=== PATIENT | male | born 1980 | race Caucasian/White ===

== ENCOUNTER 2018-05-15 00:23 | Inpatient (IN) | payer SELFPAY ==
[2018-05-15] MEDS ORDERED: NORMAL SALINE 1000 ML 1,000 ML IV ONE ×2 (01:37→02:52)
[2018-05-15] MEDS ORDERED: MORPHINE SULFATE 10 MG/ML INJ IV ONE (01:37)
--- NOTE | 2018-05-15 02:29 | ER Document Report ---
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 Patient states that yesterday he started to have a gradual burning to the right shoulder area but denies any specific injury. Patient states that tonight the shoulder pain started to increase and he noticed that he had an area over the right deltoid that he thought was concerning for a possible spider bite. Patient states that he heated up a razor blade and cut into the arm and states that he had 2 small drops of purulent material drained. Patient complains of increased shoulder pain that extends over the clavicle into the right side of his neck into the right upper back area. Patient denies any IV drug use. - HPI Patient complains to provider of: Pain, Swelling, Right, Shoulder Onset: Yesterday Recent injury: No Quality of pain: Sharp Severity of pain: Severe, Worse Pain Level: 5 Associated symptoms: denies: Fever, Nausea, Short of breath, Vomiting Exacerbated by: Movement Relieved by: Nothing Similar symptoms previously: No Recently seen / treated by doctor: No - Related Data Allergies/Adverse Reactions: No Known Allergies Allergy (Unverified 05/15/18 00:36) Past Medical History - General Information source: Patient - Social History Smoking Status: Current Every Day Smoker Chew tobacco use (# tins/day): No Frequency of alcohol use: None Drug Abuse: None Occupation: [employer] Lives with: Family Family History: Reviewed & Not Pertinent Patient has suicidal ideation: No Patient has homicidal ideation: No - Medical History Medical History: Negative Renal/ Medical History: Denies: Hx Peritoneal Dialysis Surgical Hx: Negative Review of Systems - Review of Systems Constitutional: No symptoms reported EENT: No symptoms reported Cardiovascular: No symptoms reported. denies: Chest pain Respiratory: No symptoms reported. denies: Cough, Short of breath Gastrointestinal: No symptoms reported. denies: Vomiting Genitourinary: No symptoms reported Male Genitourinary: No symptoms reported Musculoskeletal: Back pain - Right upper back, Joint pain - Right shoulder, Neck pain - Right side of neck Skin: Other - Concerned about spider bite to right deltoid Hematologic/Lymphatic: No symptoms reported Neurological/Psychological: No symptoms reported. denies: Weakness, Headaches Physical Exam - Vital signs Vitals: Temp Pulse Resp BP Pulse Ox 98.4 F 124 H 18 144/90 H 98 05/15/18 00:36 05/15/18 00:36 05/15/18 00:36 05/15/18 00:36 05/15/18 00:36 - General General appearance: Appears well, Alert In distress: Moderate Notes: Patient with very exaggerated pain response, pain seems out of proportion to physical exam findings - HEENT Head: Normocephalic, Atraumatic Eyes: Normal Nasal: Normal Mouth/Lips: Normal Mucous membranes: Normal Neck: Normal, Supple. No: Lymphadenopathy - Respiratory Respiratory status: No respiratory distress Chest status: Tender - Right upper chest wall tenderness with palpation, mild erythema overlying skin to right mid clavicular area Breath sounds: Normal Chest palpation: Tender - Right upper chest wall tenderness - Cardiovascular Rhythm: Tachycardia Heart sounds: S1 appreciated, S2 appreciated Murmur: No Pulses: Normal: Radial - Abdominal Inspection: Normal Tenderness: Nontender - Back Back: Normal, Nontender - Extremities General upper extremity: Tender - Tenderness over right deltoid, superior aspect of right humeral head and overlying the right clavicular area General lower extremity: Normal inspection, Normal strength Shoulder: Tender - Right shoulder, Limited ROM, Other - Patient with puncture wound to right deltoid area, no surrounding erythema, patient states this is where he performed an incision and drainage procedure at home with a razor blade. No: Ecchymosis Arm: Normal, Nontender Elbow: Normal, Nontender - Neurological Neuro grossly intact: Yes [place] Coma Scale Eye Opening: Spontaneous [place] Coma Scale Verbal: Oriented [place] Coma Scale Motor: Obeys Commands [place] Coma Scale Total: 15 - Psychological Associated symptoms: Anxious - Skin Skin Temperature: Warm Skin Moisture: Dry Skin Color: Erythema - Mild erythema overlying right clavicular area of upper chest wall Course - Re-evaluation Re-evalutation: 05/15/18 01:[address] Thacker who agrees to examined patient. 05/15/18 04:[address] Thacker regarding results of CT scan. Does recommend starting antibiotics including Zosyn and vancomycin and consultation with Ortho as well as hospitalist for likely admission. Consulted with Dr. lopez regarding patient presentation, agrees with plan for antibiotic administration 05/15/18 04:[address] Arevalo who does agree to accept patient for admission to medical floor at this time. - Vital Signs Vital signs: Temp Pulse Resp BP Pulse Ox 99.1 F 96 20 150/99 H 100 05/15/18 02:39 05/15/18 02:39 05/15/18 02:39 05/15/18 02:39 05/15/18 02:39 - Laboratory Result Diagrams: 05/15/18 02:15 05/15/18 02:15 Laboratory results interpreted by me: 05/15/18 05/15/18 05/15/18 02:15 02:15 02:15 WBC 15.3 H RBC 4.29 L RDW 14.6 H Seg Neutrophils % 79.5 H Lymphocytes % 9.9 L Absolute Neutrophils 12.1 H Absolute Monocytes 1.5 H ESR Glucose 114 H C-Reactive Protein 198.6 H 05/15/18 02:15 WBC RBC RDW Seg Neutrophils % Lymphocytes % Absolute Neutrophils Absolute Monocytes ESR 95 H Glucose C-Reactive Protein Labs- Entire Visit 05/15/18 05/15/18 05/15/18 02:15 02:15 02:15 WBC 15.3 H RBC 4.29 L Hgb 13.5 Hct 39.1 MCV 91 MCH 31.5 MCHC 34.5 RDW 14.6 H Plt Count 315 Seg Neutrophils % 79.5 H Lymphocytes % 9.9 L Monocytes % 10.0 Eosinophils % 0.2 Basophils % 0.4 Absolute Neutrophils 12.1 H Absolute Lymphocytes 1.5 Absolute Monocytes 1.5 H Absolute Eosinophils 0.0 Absolute Basophils 0.1 ESR PT INR VBG pH VBG pCO2 VBG HCO3 VBG Base Excess Sodium 142.7 Potassium 4.2 Chloride 102 Carbon Dioxide 29 Anion Gap 12 BUN 14 Creatinine 0.79 Est GFR ( Amer) > 60 Est GFR (Non-Af Amer) > 60 Glucose 114 H Lactic Acid Calcium 9.4 Total Bilirubin 0.4 Direct Bilirubin 0.3 Neonat Total Bilirubin Not Reportable Neonat Direct Bilirubin Not Reportable Neonat Indirect Bili Not Reportable AST 28 ALT 50 Alkaline Phosphatase 86 Creatine Kinase 58 C-Reactive Protein 198.6 H Total Protein 6.9 Albumin 3.5 05/15/18 05/15/18 05/15/18 02:15 02:15 02:15 WBC RBC Hgb Hct MCV MCH MCHC RDW Plt Count Seg Neutrophils % Lymphocytes % Monocytes % Eosinophils % Basophils % Absolute Neutrophils Absolute Lymphocytes Absolute Monocytes Absolute Eosinophils Absolute Basophils ESR 95 H PT 12.2 INR 0.86 VBG pH VBG pCO2 VBG HCO3 VBG Base Excess Sodium Potassium Chloride Carbon Dioxide Anion Gap BUN Creatinine Est GFR ( Amer) Est GFR (Non-Af Amer) Glucose Lactic Acid 1.2 Calcium Total Bilirubin Direct Bilirubin Neonat Total Bilirubin Neonat Direct Bilirubin Neonat Indirect Bili AST ALT Alkaline Phosphatase Creatine Kinase C-Reactive Protein Total Protein Albumin 05/15/18 02:15 WBC RBC Hgb Hct MCV MCH MCHC RDW Plt Count Seg Neutrophils % Lymphocytes % Monocytes % Eosinophils % Basophils % Absolute Neutrophils Absolute Lymphocytes Absolute Monocytes Absolute Eosinophils Absolute Basophils ESR PT INR VBG pH 7.39 VBG pCO2 50.0 VBG HCO3 29.3 VBG Base Excess 3.4 Sodium Potassium Chloride Carbon Dioxide Anion Gap BUN Creatinine Est GFR ( Amer) Est GFR (Non-Af Amer) Glucose Lactic Acid Calcium Total Bilirubin Direct Bilirubin Neonat Total Bilirubin Neonat Direct Bilirubin Neonat Indirect Bili AST ALT Alkaline Phosphatase Creatine Kinase C-Reactive Protein Total Protein Albumin - Diagnostic Test Radiology reviewed: Reports reviewed Discharge - Discharge Clinical Impression: Myositis Qualifiers: Myositis type: unspecified type Myositis location: unspecified site Qualified Code(s): M60.9 - Myositis, unspecified Cellulitis Qualifiers: Site of cellulitis: unspecified site Qualified Code(s): L03.90 - Cellulitis, unspecified Right shoulder pain Qualifiers: Chronicity: acute Qualified Code(s): M25.511 - Pain in right shoulder Condition: Stable Disposition: ADMITTED INPATIENT Admitting Provider: Hospitalist Unit Admitted: Medical Floor
[2018-05-15 02:35] LABS: ABSOLUTE BASOPHILS # (AUTO) 0.1 10^3/uL (0.0-0.2); ABSOLUTE LYMPHOCYTES (AUTO) 1.5 10^3/uL (0.5-4.7); ABSOLUTE MONOCYTES (AUTO) 1.5 10^3/uL (0.1-1.4); ABSOLUTE NEUT (AUTO) 12.1 10^3/uL (1.7-8.2); BASOPHILS % (AUTO) 0.4 % (0-2); EOSINOPHILS % (AUTO) 0.2 % (0-6); HEMATOCRIT 39.1 % (37.9-51.0); HEMOGLOBIN 13.5 g/dL (13.5-17.0); LYMPHOCYTES % (AUTO) 9.9 % (13-45); MEAN CORPUSCULAR HEMOGLOBIN 31.5 pg (27.0-33.4); MEAN CORPUSCULAR HGB CONC 34.5 g/dL (32.0-36.0); MEAN CORPUSCULAR VOLUME 91 fl (80-97); PLATELET COUNT 315 10^3/uL (150-450); RED BLOOD COUNT 4.29 10^6/uL (4.35-5.55); RED CELL DISTRIBUTION WIDTH 14.6 % (11.5-14.0); SEGMENTED NEUTROPHILS % (AUTO) 79.5 % (42-78); TOTAL CELLS COUNTED % (AUTO) 100 %; WHITE BLOOD COUNT 15.3 10^3/uL (4.0-10.5)
--- NOTE | 2018-05-15 02:51 | RADIOLOGY REPORT (SQ) ---
EXAM DESCRIPTION: XR SHOULDER 2 OR MORE VIEWS COMPLETED DATE/TME: 05/15/2018 01:55 CLINICAL HISTORY: 37 years, Male, concern for dislocation COMPARISON: None. NUMBER OF VIEWS: 3 TECHNIQUE: 3 view right shoulder LIMITATIONS: None. FINDINGS: Deformity of the acromioclavicular joint consistent with AC separation. In addition there is cortical irregularity associated with the distal clavicle, worrisome for nondisplaced fracture. There is extensive soft tissue swelling. The glenohumeral joint is intact. IMPRESSION: Widening of the acromioclavicular joint concerning for AC separation with nondisplaced fracture of the distal clavicle. Associated soft tissue swelling. 2011 [employer]- All Rights Reserved
[2018-05-15 02:52] LABS: ALANINE AMINOTRANSFERASE 50 U/L (21-72); ALBUMIN 3.5 g/dL (3.5-5.0); ALKALINE PHOSPHATASE 86 U/L (38-126); ANION GAP 12 (5-19); ASPARTATE AMINO TRANSFERASE 28 U/L (17-59); BILIRUBIN,DIRECT 0.3 mg/dL (0.0-0.4); BILIRUBIN,TOTAL 0.4 mg/dL (0.2-1.3); BLOOD UREA NITROGEN 14 mg/dL (7-20); CALCIUM 9.4 mg/dL (8.4-10.2); CARBON DIOXIDE 29 mmol/L (22-30); CHLORIDE 102 mmol/L (98-107); GLUCOSE 114 mg/dL (75-110); POTASSIUM 4.2 mmol/L (3.6-5.0); SODIUM 142.7 mmol/L (137-145); TOTAL PROTEIN 6.9 g/dL (6.3-8.2)
[2018-05-15] MEDS ORDERED: ACETAMINOPHEN 325 MG TABLET PO ONE (02:52)
[2018-05-15 02:57] LABS: CREATINE KINASE 58 U/L (55-170)
[2018-05-15 02:58] LABS: VENOUS BLOOD BASE EXCESS 3.4 mmol/L; VENOUS BLOOD HCO3 29.3 mmol/L (20-32); VENOUS BLOOD PH 7.39 (7.30-7.42)
[2018-05-15 03:02] LABS: INTERNATIONAL RATION (INR) 0.86; PROTHROMBIN TIME 12.2 SEC (11.4-15.4)
[2018-05-15 03:11] LABS: C-REACTIVE PROTEIN 198.6 mg/L (<10.0)
[2018-05-15] MEDS ORDERED: HYDROMORPHONE HCL INJ/PF 2 MG/ML AMPULE IV ONE ×2 (03:14→05:31)
--- NOTE | 2018-05-15 04:20 | RADIOLOGY REPORT (SQ) ---
EXAM DESCRIPTION: CT UPPER EXTREMITY WITH IV CONTRAST COMPLETED DATE/TME: 05/15/2018 02:51 CLINICAL HISTORY: 37 years, Male, r shoulder, clavicle, trapezius, r lat neck pain COMPARISON: None. TECHNIQUE: 443 Images stored on PACS. All CT scanners at this facility use dose modulation, iterative reconstruction, and/or weight based dosing when appropriate to reduce radiation dose to as low as reasonably achievable (ALARA). [facility]: Dose Right [facility]: CareDose [facility]: Dose Right [facility]: Teradose 4D [facility]: [employer] LIMITATIONS: None. FINDINGS: There is subcutaneous inflammatory change and inflammation in the right supraclavicular region, minimally extending to the right neck and posterior right hemithorax. No discrete or defined fluid collection or abscess. No enhancing abnormality. There is irregularity of the acromioclavicular joint, and the distal clavicle. There is no soft tissue gas. Some equivocal widening of the acromial clavicular joint findings may simply represent degenerative changes with minor cortical irregularity of the acromial clavicular joint particularly the distal clavicle. There is also an edematous heterogeneous appearance to the right deltoid musculature, suspicious for myositis. Given other findings, superimposed infectious process cannot be excluded entirely. Close follow-up is recommended. IMPRESSION: Cellulitis and myositis of the right supraclavicular region with cortical irregularity of the distal clavicle/AC joint. No discrete or defined abscess or enhancing abnormality. Findings of the AC joint may in part relate to degenerative change. However, an infectious process would be difficult to exclude entirely given the degree of soft tissue edema and inflammation.. TECHNICAL DOCUMENTATION: Quality ID # 436: Final reports with documentation of one or more dose reduction techniques (e.g., Automated exposure control, adjustment of the mA and/or kV according to patient size, use of iterative reconstruction technique) 2010 [employer]- All Rights Reserved
[2018-05-15] MEDS ORDERED: VANCOMYCIN HCL INJ 1000 MG VIAL IV ONE (04:41)
[2018-05-15] MEDS ORDERED: PIPERACILLIN/TAZOBACTAM 3.375 GM VIAL IV ONE (04:41)
[2018-05-15] MEDS ORDERED: DIPH/PERTUSS(ACELL)/TETANUS VAC/PF 0.5 ML SYR (>=10YO) IM ONE (04:59)
[2018-05-15] MEDS ORDERED: HYDROMORPHONE HCL INJ/PF 2 MG/ML AMPULE ONE (05:29)
[2018-05-15] MEDS ORDERED: METHYLPREDNISOLONE INJ 125 MG/2 ML SDV IV STA (05:38)
[2018-05-15] MEDS ORDERED: MAG HYDROX/AL HYDROX/SIMETH SUSP 30 ML UDCUP PO PRN (05:39)
[2018-05-15] MEDS ORDERED: METOCLOPRAMIDE HCL INJ/PF 10 MG/2 ML SDV IV PRN (05:39)
[2018-05-15] MEDS ORDERED: AMPICILLIN SOD/SULBACTAM 3 GM VIAL IV PRN (05:45)
[2018-05-15] MEDS ORDERED: AMPICILLIN SODIUM/SULBACTAM NA 3 GM in NORMAL SALINE 100 ML IV SCH (06:00)
--- NOTE | 2018-05-15 06:16 | PDOC H&P ---
History of Present Illness Admission Date/PCP: 05/15/18 05:01 Patient complains of: Right shoulder pain History of Present Illness: JOSE MARTINES is a 37 year old male with no medical history who comes to the emergency department after a spider bite. Patient tells me that he was not sleeping and around 10 PM a sudden pain on his right shoulder woke him up, he went to the bathroom on his own 2 L dots on his right shoulder, he got his care and he cut that piece of his skin with a razor. Patient is squeezed the lesion and some post came out, he has a intense burning sensation and noticed erythema , edema and warm that rapidly has been extending to his right neck upper back part of his chest and arm, he has an excruciating pain with very light palpation. Denies fever, chills, nausea, vomiting, dizziness, lightheadedness, shortness of breath, chest pain, cough, wheezing, abdominal pains, changes on his urine or bowel movements. In the emergency department that right shoulder x-ray showsWidening of the acromioclavicular joint concerning for AC separation with nondisplaced fracture of the distal clavicle. Associated soft tissue swelling. Subsequent CT was done showing Cellulitis and myositis of the right supraclavicular region with cortical irregularity of the distal clavicle/AC joint. No discrete or defined abscess or enhancing abnormality. Due to the severity of this lesion it was decided to admit the patient In the ED was order IV Zosyn and IV vancomycin. Past Medical History Medical History: None Past Surgical History Past Surgical History: Reports: None Social History Smoking Status: Current Every Day Smoker - 1 pack/day Frequency of Alcohol Use: None Hx Recreational Drug Use: No Hx Prescription Drug Abuse: No Past Social History Note: Patient lives with his mother and his son. 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 Family History Family History: Mother is alive 66 years old, father at 58 years old with history of massive CO Parental Family History Reviewed: Yes - As above Children Family History Reviewed: NA Sibling(s) Family History Reviewed.: NA Medication/Allergy Allergies/Adverse Reactions: No Known Allergies Allergy (Unverified 05/15/18 00:36) Review of Systems Review of Systems: As outlined in the HPI, others negative Physical Exam Vital Signs: Temp Pulse Resp BP Pulse Ox 99.1 F 96 20 150/99 H 100 05/15/18 02:39 05/15/18 02:39 05/15/18 02:39 05/15/18 02:39 05/15/18 02:39 Additional comments: General appearance: Well-developed, well-nourished, alert and cooperative, and appears to be in no acute distress Head: Normocephalic Eyes: PEERL, EOMI, vision is grossly intact. Ears: External auditory canal and tympanic membranes clear, hearing grossly intact. Nose: No nasal discharge. Throat: Oral cavity and pharynx normal. No inflammation, swelling, exudate or lesions. Neck: Neck supple, nontender without lymphadenopathy, masses or thyromegaly. Cardiac: Normal S1 and S2. No S3, S4 or murmurs. Rhythm is regular. There is no peripheral edema, cyanosis or pallor. Extremities are warm and well perfused. Capillary refill is less than 2 seconds. No carotid bruits. Lungs: Clear to auscultation and percussion without rales, rhonchi, wheezing or diminished breath sounds. Not using accessory muscles. Abdomen: Positive bowel sounds. Soft. Nondistended, nontender. No guarding or rebound. No masses. No hepatosplenomegaly Extremities: Right shoulder: Shows redness with swelling and warmth extending over the right deltoid, superior aspect of the right humeral head and overlying the right clavicular area and neck. Extremely tender Rogers to light palpation. The fangs vergara are not visible as that skin area has been cutwith a razor. Very limited range of motion of the right shoulder secondary to pain. No evidence of secretions. Peripheral pulses intact. No varicosities. Neurological: Cranial nerves II through XII grossly intact. Strength and sensation symmetric and intact throughout. Reflexes 2+ throughout. Skin: Skin normal color, texture and turgor with no lesions or eruptions, warm and dry. Psychiatric: The mental examination revealed the patient was oriented to person , place, and time. The patient was able to demonstrate good judgment on recent , without hallucinations, abnormal affect or abnormal behaviors. Results Laboratory Results: 05/15/18 05/15/18 05/15/18 02:15 02:15 02:15 WBC 15.3 H RBC 4.29 L Hgb 13.5 Hct 39.1 MCV 91 MCH 31.5 MCHC 34.5 RDW 14.6 H Plt Count 315 Seg Neutrophils % 79.5 H Lymphocytes % 9.9 L Monocytes % 10.0 Eosinophils % 0.2 Basophils % 0.4 Absolute Neutrophils 12.1 H Absolute Lymphocytes 1.5 Absolute Monocytes 1.5 H Absolute Eosinophils 0.0 Absolute Basophils 0.1 ESR PT INR VBG pH VBG pCO2 VBG HCO3 VBG Base Excess Sodium 142.7 Potassium 4.2 Chloride 102 Carbon Dioxide 29 Anion Gap 12 BUN 14 Creatinine 0.79 Est GFR ( Amer) > 60 Est GFR (Non-Af Amer) > 60 Glucose 114 H Lactic Acid Calcium 9.4 Total Bilirubin 0.4 Direct Bilirubin 0.3 AST 28 ALT 50 Alkaline Phosphatase 86 Creatine Kinase 58 C-Reactive Protein 198.6 H Total Protein 6.9 Albumin 3.5 05/15/18 05/15/18 05/15/18 02:15 02:15 02:15 WBC RBC Hgb Hct MCV MCH MCHC RDW Plt Count Seg Neutrophils % Lymphocytes % Monocytes % Eosinophils % Basophils % Absolute Neutrophils Absolute Lymphocytes Absolute Monocytes Absolute Eosinophils Absolute Basophils ESR 95 H PT 12.2 INR 0.86 VBG pH VBG pCO2 VBG HCO3 VBG Base Excess Sodium Potassium Chloride Carbon Dioxide Anion Gap BUN Creatinine Est GFR ( Amer) Est GFR (Non-Af Amer) Glucose Lactic Acid 1.2 Calcium Total Bilirubin Direct Bilirubin AST ALT Alkaline Phosphatase Creatine Kinase C-Reactive Protein Total Protein Albumin 05/15/18 02:15 WBC RBC Hgb Hct MCV MCH MCHC RDW Plt Count Seg Neutrophils % Lymphocytes % Monocytes % Eosinophils % Basophils % Absolute Neutrophils Absolute Lymphocytes Absolute Monocytes Absolute Eosinophils Absolute Basophils ESR PT INR VBG pH 7.39 VBG pCO2 50.0 VBG HCO3 29.3 VBG Base Excess 3.4 Sodium Potassium Chloride Carbon Dioxide Anion Gap BUN Creatinine Est GFR ( Amer) Est GFR (Non-Af Amer) Glucose Lactic Acid Calcium Total Bilirubin Direct Bilirubin AST ALT Alkaline Phosphatase Creatine Kinase C-Reactive Protein Total Protein Albumin Impressions: Shoulder X-Ray 05/15/18 01:55 IMPRESSION: Widening of the acromioclavicular joint concerning for AC separation with nondisplaced fracture of the distal clavicle. Associated soft tissue swelling. 2010 [employer]- All Rights Reserved Upper Extremity CT 05/15/18 02:51 IMPRESSION: Cellulitis and myositis of the right supraclavicular region with cortical irregularity of the distal clavicle/AC joint. No discrete or defined abscess or enhancing abnormality. Findings of the AC joint may in part relate to degenerative change. However, an infectious process would be difficult to exclude entirely given the degree of soft tissue edema and inflammation.. TECHNICAL DOCUMENTATION: Quality ID # 436: Final reports with documentation of one or more dose reduction techniques (e.g., Automated exposure control, adjustment of the mA and/or kV according to patient size, use of iterative reconstruction technique) 2010 [employer]- All Rights Reserved Assessment & Plan - Diagnosis (1) Spider bite Qualifiers: Encounter type: initial encounter Is this a current diagnosis for this admission?: Yes Plan: Spider bite with cellulitis and myositis of the right shoulder that has rapidly progressed in few hours. Patient has excruciating pain with light palpation and severe burning sensation. Has been given IV Zosyn and IV vancomycin in the ED, I will continue with IV Unasyn as this reaction is most likely secondary to spider venoum. I gave 1 dose of Solu-Medrol 125 mg IV. IV fluids. IV and p.o. pain medications. P.o. Benadryl as needed. IV antiemetics as needed. Orthopedics with Dr. meyer has been consulted, emergency spoke with him and he agrees with antibiotics. It is concerning the velocity that the lesion has spread. (2) Cellulitis Qualifiers: Site of cellulitis: unspecified site Qualified Code(s): L03.90 - Cellulitis , unspecified Is this a current diagnosis for this admission?: Yes Plan: Right shoulder. As above (3) Myositis Qualifiers: Myositis type: unspecified type Myositis location: unspecified site Qualified Code(s): M60.9 - Myositis, unspecified Is this a current diagnosis for this admission?: Yes Plan: Right shoulder. As above (4) DVT prophylaxis Is this a current diagnosis for this admission?: Yes Plan: Heparin - Time Time Spent: 50 to 70 Minutes - Inpatient Certification Based on my medical assessment, after consideration of the patient's comorbidities, presenting symptoms, or acuity I expect that the services needed warrant INPATIENT care.: Yes I certify that my determination is in accordance with my understanding of Medicare's requirements for reasonable and necessary INPATIENT services [42 CFR 412.3e].: Yes Medical Necessity: Risk of Complication if Not Cared For in Hospital - Worsening cellulitis with myositis including necrosis and infection. Excruciating pain. - Plan Summary Plan Summary: Plan discussed with patient, agree with it.
[2018-05-15] MEDS: HEPARIN SOD (PORCINE) 5,000 UNIT/ML 1 ML SYRINGE SUBCUT SCH ×3 (06:56→21:52)
[2018-05-15] MEDS: OXYCODONE-ACETAMINOPHEN 5-325 MG TABLET PO PRN ×3 (07:55→21:53)
[2018-05-15] MEDS: HYDROMORPHONE HCL INJ/PF 2 MG/ML AMPULE IV PRN ×2 (10:03→17:10)
[2018-05-15] MEDS: AMPICILLIN SODIUM/SULBACTAM NA 3 GM in NORMAL SALINE 100 ML IV SCH ×3 (10:04→21:52)
--- NOTE | 2018-05-15 10:54 | EKG REPORT ---
SEVERITY:- OTHERWISE NORMAL ECG - SINUS TACHYCARDIA : Confirmed by: Agustin Ramos 15-May-2018 10:53:42
--- NOTE | 2018-05-15 11:10 | Progress Note ---
Provider Note Provider Note: Admitted overnight - Continue to have excruciating pain. - Add IV Dilaudid 1mg q6 hours PRN - Dr. Enedelia Josue consulted, appreciate evaluation to determine if surgical intervention is needed at this point - Advised patient that we will continue supportive care now - If blood cultures are negative, can de-escalate/dc antibiotics
--- NOTE | 2018-05-15 14:04 | PDOC CONSULTATION ---
Consultation Consult Date: 05/15/18 History of Present Illness Admission Date/PCP: 05/15/18 05:01 History of Present Illness: JOSE MARTINES is a 37 year old male status post what he believes was a spider bite but he cannot be under pressure. The bite was on the right lateral shoulder over his head to. Immediately developed swelling pain and burning sensation and was brought to the ER. Patient was admitted for cellulitis myositis status post spider bite of the right shoulder. Patient complained of it being warm to touch and red and increasing pain. Denies any previous injuries to the shoulder or previous bite to the shoulder. Complains of pain to being with touch to be 10 out of 10 acute burning pain at rest the pain is 4 out of 10. Past Surgical History Past Surgical History: Reports: None Social History Lives with: Family Smoking Status: Current Every Day Smoker Frequency of Alcohol Use: None Hx Recreational Drug Use: No Hx Prescription Drug Abuse: No Family History Family History: Reviewed & Not Pertinent Parental Family History Reviewed: No Children Family History Reviewed: No Sibling(s) Family History Reviewed.: No Medication/Allergy Home Medications: No Home Medications 05/15/18 Allergies/Adverse Reactions: No Known Allergies Allergy (Unverified 05/15/18 00:36) Review of Systems Review of Systems: Constitutional: [PRESENT: as per HPI. ABSENT: chills, fever(s), headache(s), weight gain, weight loss] Eyes: [ABSENT: visual disturbances] Ears: [ABSENT: hearing changes] Cardiovascular: [ABSENT: chest pain, dyspnea on exertion, edema, orthropnea, palpitations] Respiratory: [ABSENT: cough, hemoptysis] Gastrointestinal: [ABSENT: abdominal pain, constipation, diarrhea, hematemesis, hematochezia, nausea, vomiting] Genitourinary: [ABSENT: dysuria, hematuria] Musculoskeletal: [ABSENT: joint swelling] Integumentary: [ABSENT: rash, wounds] Neurological: [ABSENT: abnormal gait, abnormal speech, confusion, dizziness, focal weakness, syncope] Psychiatric: [ABSENT: anxiety, depression, homicidal ideation, suicidal ideation ] Endocrine: [ABSENT: cold intolerance, heat intolerance, menstrual abnormalities , polydipsia, polyuria] Hematologic/Lymphatic: [ABSENT: easy bleeding, easy bruising, lymphadenopathy] Physical Exam Vital Signs: Temp Pulse Resp BP Pulse Ox 37.4 C 106 H 16 149/94 H 100 11/18/18 11:12 05/15/18 11:12 05/15/18 11:12 05/15/18 11:12 05/15/18 11:12 Intake & Output 05/14/18 05/15/18 05/16/18 06:59 06:59 06:59 Intake Total 927 Output Total 1900 Balance -973 Weight 91.1 kg General appearance: PRESENT: no acute distress Head exam: PRESENT: atraumatic, normocephalic Eye exam: PRESENT: EOMI, other - Symmetric round pupils Mouth exam: PRESENT: neck supple Respiratory exam: PRESENT: symmetrical, unlabored. ABSENT: accessory muscle use , tachypnea Pulses: PRESENT: normal radial pulses Vascular exam: PRESENT: normal capillary refill Neurological exam: PRESENT: alert, altered, awake, oriented to person, oriented to place, oriented to time, oriented to situation Psychiatric exam: PRESENT: appropriate affect, normal mood Adult Front & Back Image: 1 - I can see the previous scab where the animal bit. I do not see the erythema that was present. Extremely tender out of proportion with palpation of the only the lateral shoulder but the supraclavicular fossa and his periscapular region. There is minimal swelling. He does have normal neurovascular exam distally in that extremity. Results Impressions: Shoulder X-Ray 05/15/18 01:55 IMPRESSION: Widening of the acromioclavicular joint concerning for AC separation with nondisplaced fracture of the distal clavicle. Associated soft tissue swelling. 2010 [employer]- All Rights Reserved Upper Extremity CT 05/15/18 02:51 IMPRESSION: Cellulitis and myositis of the right supraclavicular region with cortical irregularity of the distal clavicle/AC joint. No discrete or defined abscess or enhancing abnormality. Findings of the AC joint may in part relate to degenerative change. However, an infectious process would be difficult to exclude entirely given the degree of soft tissue edema and inflammation.. TECHNICAL DOCUMENTATION: Quality ID # 436: Final reports with documentation of one or more dose reduction techniques (e.g., Automated exposure control, adjustment of the mA and/or kV according to patient size, use of iterative reconstruction technique) 2010 [employer]- All Rights Reserved Assessment & Plan - Diagnosis (1) Right shoulder pain Qualifiers: Chronicity: acute Qualified Code(s): M25.511 - Pain in right shoulder (2) Spider bite Qualifiers: Encounter type: initial encounter Is this a current diagnosis for this admission?: Yes - Plan Summary Plan Summary: 37-year-old gentleman status post likely spider bite to the right shoulder with some neuropathic pain I believe. There is no evidence of abscess formation requiring surgical intervention. There is no erythema. There is significant pain therefore I would recommend leg she would like Neurontin or Lyrica to help with his pain. If patient plateaus her symptoms worsen or do not improve then next 2-3 days then I would recommend an MRI of the right shoulder to further investigate source of his pain. The cortical irregularity of the x-rays could be from ostial lysis of the clavicle. Again if the patient does not improve I recommend an MRI of the right shoulder.
[2018-05-15] MEDS: NORMAL SALINE 1000 ML 1,000 ML IV PRN (21:54)
[2018-05-15] MEDS: TEMAZEPAM 15 MG CAPSULE PO PRN (21:54)
[2018-05-15] MEDS ORDERED: VANCOMYCIN HCL INJ 1000 MG VIAL IV PRN (23:05)
[2018-05-15] MEDS ORDERED: [UNRECOGNIZED DRUG - OTHER] MC PRN (23:06)
[2018-05-16] MEDS ORDERED: VANCOMYCIN HCL 1,250 MG in DEXTROSE 5%-WATER 250 ML IV ONE ×2
[2018-05-16] MEDS: HYDROMORPHONE HCL INJ/PF 2 MG/ML AMPULE IV PRN ×7 (00:14→23:55)
[2018-05-16] MEDS ORDERED: VANCOMYCIN HCL INJ 1000 MG VIAL ONE (01:03)
[2018-05-16] MEDS ORDERED: VANCOMYCIN HCL INJ 500 MG VIAL ONE (02:22)
[2018-05-16] MEDS: AMPICILLIN SODIUM/SULBACTAM NA 3 GM in NORMAL SALINE 100 ML IV SCH ×4 (02:24→21:15)
[2018-05-16] MEDS: KETOROLAC TROMETHAMINE INJ/PF 30 MG/1 ML SDV IV PRN ×4 (03:36→23:54)
[2018-05-16 04:50] LABS: ABSOLUTE BASOPHILS # (AUTO) 0.1 10^3/uL (0.0-0.2); ABSOLUTE LYMPHOCYTES (AUTO) 1.3 10^3/uL (0.5-4.7); ABSOLUTE MONOCYTES (AUTO) 1.6 10^3/uL (0.1-1.4); ABSOLUTE NEUT (AUTO) 15.2 10^3/uL (1.7-8.2); BASOPHILS % (AUTO) 0.4 % (0-2); EOSINOPHILS % (AUTO) 0.1 % (0-6); HEMATOCRIT 33.2 % (37.9-51.0); HEMOGLOBIN 11.5 g/dL (13.5-17.0); LYMPHOCYTES % (AUTO) 7.4 % (13-45); MEAN CORPUSCULAR HEMOGLOBIN 31.1 pg (27.0-33.4); MEAN CORPUSCULAR HGB CONC 34.5 g/dL (32.0-36.0); MEAN CORPUSCULAR VOLUME 90 fl (80-97); MONOCYTES % (AUTO) 8.6 % (3-13); PLATELET COUNT 233 10^3/uL (150-450); RED BLOOD COUNT 3.68 10^6/uL (4.35-5.55); RED CELL DISTRIBUTION WIDTH 14.4 % (11.5-14.0); SEGMENTED NEUTROPHILS % (AUTO) 83.5 % (42-78); TOTAL CELLS COUNTED % (AUTO) 100 %; WHITE BLOOD COUNT 18.2 10^3/uL (4.0-10.5)
[2018-05-16 05:10] LABS: ANION GAP 12 (5-19); BLOOD UREA NITROGEN 9 mg/dL (7-20); CALCIUM 8.4 mg/dL (8.4-10.2); CARBON DIOXIDE 24 mmol/L (22-30); CHLORIDE 100 mmol/L (98-107); GLUCOSE 105 mg/dL (75-110); POTASSIUM 3.7 mmol/L (3.6-5.0); SODIUM 135.5 mmol/L (137-145)
[2018-05-16] MEDS: HEPARIN SOD (PORCINE) 5,000 UNIT/ML 1 ML SYRINGE SUBCUT SCH ×3 (05:49→21:16)
[2018-05-16] MEDS: VANCOMYCIN HCL 1,500 MG in DEXTROSE 5%-WATER 250 ML IV SCH ×2 (10:17→18:14)
[2018-05-16] MEDS: NICOTINE 21 MG/24 HR PATCH.TD24 TD SCH (12:13)
--- NOTE | 2018-05-16 13:31 | PDOC PROGRESS REPORT ---
Subjective Progress Note for:: 05/16/18 Subjective:: JOSE MARTINES is a 37 year old male with past medical history of a spider bite 3 years ago. 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 Presented to ED after a spider bite. He stated that while sleeping around 10 PM of sudden pain in his right shoulder , woke up and went to the bathroom and noticed 2 small dots over his lateral shoulder, he went to his bathroom and cut the piece of his skin out with a razor and squeezed the lesion and he states that some pus came out. He noticed that he was having intense burning sensation associated with rapidly expanding erythema and edema extending to his right neck and right upper chest with excruciating right shoulder pain and tenderness to very light palpation. Denies fever, chills, nausea, vomiting, dizziness, lightheadedness, shortness of breath, chest pain, cough, wheezing, abdominal pains, changes on his urine or bowel movements. In the ED right shoulder x-ray showed thinning of AC concerning for AC separation with nondisplaced fracture of the distal clavicle with associated soft tissue swelling. All of CT showed right shoulder cellulitis and myelitis and right supraclavicular region with cortical irregularity of the distal clavicle and AC joint. No collection or abscess were noted. Patient was admitted patient for management of his pain and was started on IV vancomycin and Zosyn. Ortho was consulted and recommendation was to monitor patient and if pain does not improve to do a follow-up MRI of the right shoulder. 01/13/2018. Events overnight. Patient is resting in his bed complaining that he has not been able to sleep all night due to persistent right shoulder pain. States that he has had another spider bite 3 years ago and he had similar pain and his pain was managed by Dilaudid. He denies any fever, chills, nausea, vomiting, diarrhea, constipation or any urinary symptoms. Reason For Visit: SPIDER BITE Physical Exam Vital Signs: Temp Pulse Resp BP Pulse Ox 98.9 F 91 16 144/80 H 100 05/16/18 12:00 05/16/18 12:00 05/16/18 12:00 05/16/18 12:00 05/16/18 12:00 Intake & Output 05/15/18 05/16/18 05/17/18 06:59 06:59 06:59 Intake Total 1463 Output Total 3900 Balance -2437 Weight 91.1 kg 96 kg General appearance: PRESENT: no acute distress, well-developed, well-nourished Head exam: PRESENT: atraumatic, normocephalic Eye exam: PRESENT: conjunctiva pink, EOMI, PERRLA. ABSENT: scleral icterus Ear exam: PRESENT: normal external ear exam Mouth exam: PRESENT: moist, tongue midline Neck exam: ABSENT: carotid bruit, JVD, lymphadenopathy, thyromegaly Respiratory exam: PRESENT: clear to auscultation sally. ABSENT: rales, rhonchi, wheezes Cardiovascular exam: PRESENT: RRR. ABSENT: diastolic murmur, rubs, systolic murmur Pulses: PRESENT: normal dorsalis pedis pul Vascular exam: PRESENT: normal capillary refill GI/Abdominal exam: PRESENT: normal bowel sounds, soft. ABSENT: distended, guarding, mass, organolmegaly, rebound, tenderness Rectal exam: PRESENT: deferred Extremities exam: PRESENT: full ROM. ABSENT: calf tenderness, clubbing, pedal edema Musculoskeletal exam: PRESENT: tenderness, other - Right upper extremity limited range of motion due to severe pain. Tenderness to palpation over deltoid region. No erythema, discharge or any active sign of infection. Pulses are palpable. Neurological exam: PRESENT: alert, awake, oriented to person, oriented to place , oriented to time, oriented to situation, CN II-XII grossly intact. ABSENT: motor sensory deficit Psychiatric exam: PRESENT: appropriate affect, normal mood. ABSENT: homicidal ideation, suicidal ideation Skin exam: PRESENT: dry, intact, warm. ABSENT: cyanosis, rash Results Laboratory Results: 05/16/18 03:57 05/16/18 03:57 05/16/18 05/16/18 03:57 03:57 WBC 18.2 H RBC 3.68 L Hgb 11.5 L Hct 33.2 L MCV 90 MCH 31.1 MCHC 34.5 RDW 14.4 H Plt Count 233 Seg Neutrophils % 83.5 H Lymphocytes % 7.4 L Monocytes % 8.6 Eosinophils % 0.1 Basophils % 0.4 Absolute Neutrophils 15.2 H Absolute Lymphocytes 1.3 Absolute Monocytes 1.6 H Absolute Eosinophils 0.0 Absolute Basophils 0.1 Sodium 135.5 L Potassium 3.7 Chloride 100 Carbon Dioxide 24 Anion Gap 12 BUN 9 Creatinine 0.62 Est GFR ( Amer) > 60 Est GFR (Non-Af Amer) > 60 Glucose 105 Calcium 8.4 Impressions: Shoulder X-Ray 05/15/18 01:55 IMPRESSION: Widening of the acromioclavicular joint concerning for AC separation with nondisplaced fracture of the distal clavicle. Associated soft tissue swelling. 2010 [employer]- All Rights Reserved Upper Extremity CT 05/15/18 02:51 IMPRESSION: Cellulitis and myositis of the right supraclavicular region with cortical irregularity of the distal clavicle/AC joint. No discrete or defined abscess or enhancing abnormality. Findings of the AC joint may in part relate to degenerative change. However, an infectious process would be difficult to exclude entirely given the degree of soft tissue edema and inflammation.. TECHNICAL DOCUMENTATION: Quality ID # 436: Final reports with documentation of one or more dose reduction techniques (e.g., Automated exposure control, adjustment of the mA and/or kV according to patient size, use of iterative reconstruction technique) 2010 [employer]- All Rights Reserved Assessment & Plan - Diagnosis (1) Spider bite Qualifiers: Encounter type: initial encounter Is this a current diagnosis for this admission?: Yes Plan: Unknown a spider. Continue supportive measures. Persistent excruciating pain however erythema and swelling of the right shoulder has resolved. Right upper extremity is very tender to palpation and patient has limited range of motion due to severe pain pulses are intact as well as sensation. Orth was on board. Continue vancomycin and Zosyn. If pain does not improve will follow up with MRI of right upper extremity with and without contrast. (2) Cellulitis Qualifiers: Site of cellulitis: unspecified site Qualified Code(s): L03.90 - Cellulitis , unspecified Is this a current diagnosis for this admission?: Yes Plan: Likely due to spider bite as well as the fact that patient manipulated the site of spider bite with a razor. Patient is growing gram-positive cocci 2 out of 2 we will continue vancomycin and Zosyn pending sensitivity. (3) Myositis Qualifiers: Myositis type: unspecified type Myositis location: unspecified site Qualified Code(s): M60.9 - Myositis, unspecified Is this a current diagnosis for this admission?: Yes Plan: As per problem #2.
[2018-05-16] MEDS: NORMAL SALINE 1000 ML 1,000 ML IV PRN (14:47)
[2018-05-16] MEDS: ACETAMINOPHEN 325 MG TABLET PO PRN (21:30)
[2018-05-17] MEDS: VANCOMYCIN HCL 1,500 MG in DEXTROSE 5%-WATER 250 ML IV SCH ×3 (01:35→18:20)
[2018-05-17] MEDS: HYDROMORPHONE HCL INJ/PF 2 MG/ML AMPULE IV PRN ×7 (03:17→22:03)
[2018-05-17] MEDS: AMPICILLIN SODIUM/SULBACTAM NA 3 GM in NORMAL SALINE 100 ML IV SCH ×4 (03:19→20:27)
[2018-05-17] MEDS: ACETAMINOPHEN 325 MG TABLET PO PRN (04:48)
[2018-05-17] MEDS: HEPARIN SOD (PORCINE) 5,000 UNIT/ML 1 ML SYRINGE SUBCUT SCH ×3 (06:26→22:07)
[2018-05-17] MEDS: KETOROLAC TROMETHAMINE INJ/PF 30 MG/1 ML SDV IV PRN ×3 (08:42→22:06)
[2018-05-17 10:14] LABS: ABSOLUTE EOSINOPHILS # (AUTO) 0.1 10^3/uL (0.0-0.6); ABSOLUTE LYMPHOCYTES (AUTO) 1.1 10^3/uL (0.5-4.7); ABSOLUTE MONOCYTES (AUTO) 0.6 10^3/uL (0.1-1.4); ABSOLUTE NEUT (AUTO) 14.4 10^3/uL (1.7-8.2); BASOPHILS % (AUTO) 0.2 % (0-2); EOSINOPHILS % (AUTO) 0.3 % (0-6); HEMATOCRIT 31.8 % (37.9-51.0); HEMOGLOBIN 10.9 g/dL (13.5-17.0); LYMPHOCYTES % (AUTO) 6.9 % (13-45); MEAN CORPUSCULAR HEMOGLOBIN 30.9 pg (27.0-33.4); MEAN CORPUSCULAR HGB CONC 34.2 g/dL (32.0-36.0); MEAN CORPUSCULAR VOLUME 91 fl (80-97); MONOCYTES % (AUTO) 3.5 % (3-13); PLATELET COUNT 312 10^3/uL (150-450); RED BLOOD COUNT 3.52 10^6/uL (4.35-5.55); RED CELL DISTRIBUTION WIDTH 14.1 % (11.5-14.0); SEGMENTED NEUTROPHILS % (AUTO) 89.1 % (42-78); TOTAL CELLS COUNTED % (AUTO) 100 %; WHITE BLOOD COUNT 16.2 10^3/uL (4.0-10.5)
[2018-05-17 10:42] LABS: VANCOMYCIN,TROUGH 10.4 ug/mL (5.0-20.0)
--- NOTE | 2018-05-17 10:42 | PDOC PROGRESS REPORT ---
Subjective Progress Note for:: 05/17/18 Subjective:: JOSE MARTINES is a 37 year old male with past medical history of a spider bite 3 years ago. 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 Presented to ED after a spider bite. He stated that while sleeping around 10 PM of sudden pain in his right shoulder , woke up and went to the bathroom and noticed 2 small dots over his lateral shoulder, he went to his bathroom and cut the piece of his skin out with a razor and squeezed the lesion and he states that some pus came out. He noticed that he was having intense burning sensation associated with rapidly expanding erythema and edema extending to his right neck and right upper chest with excruciating right shoulder pain and tenderness to very light palpation. Denies fever, chills, nausea, vomiting, dizziness, lightheadedness, shortness of breath, chest pain, cough, wheezing, abdominal pains, changes on his urine or bowel movements. In the ED right shoulder x-ray showed thinning of AC concerning for AC separation with nondisplaced fracture of the distal clavicle with associated soft tissue swelling. All of CT showed right shoulder cellulitis and myelitis and right supraclavicular region with cortical irregularity of the distal clavicle and AC joint. No collection or abscess were noted. Patient was admitted patient for management of his pain and was started on IV vancomycin and Zosyn. Ortho was consulted and recommendation was to monitor patient and if pain does not improve to do a follow-up MRI of the right shoulder. 05/16/2018. No acute events overnight. Patient is resting in his bed complaining that he has not been able to sleep all night due to persistent right shoulder pain. States that he has had another spider bite 3 years ago and he had similar pain and his pain was managed by Dilaudid. He denies any fever, chills, nausea, vomiting, diarrhea, constipation or any urinary symptoms. 04/16/2018. No acute events overnight. Patient's right shoulder pain is better controlled with increasing his Dilaudid frequency however right shoulder is extremely exquisitely tender to palpation and the swelling and range of motion has not improved. Patient denies any fever, chills, nausea, vomiting, diarrhea, constipation or any urinary symptoms. Reason For Visit: SPIDER BITE Physical Exam Vital Signs: Temp Pulse Resp BP Pulse Ox 99.0 F 76 17 133/79 H 100 05/16/18 23:45 05/16/18 23:45 05/16/18 23:45 05/16/18 23:45 05/16/18 23:45 Intake & Output 05/16/18 05/17/18 05/18/18 06:59 06:59 06:59 Intake Total 1463 7345 Output Total 3900 650 Balance -2437 6695 Weight 96 kg 95.3 kg General appearance: PRESENT: no acute distress, well-developed, well-nourished Respiratory exam: PRESENT: clear to auscultation sally. ABSENT: rales, rhonchi, wheezes Cardiovascular exam: PRESENT: RRR. ABSENT: diastolic murmur, rubs, systolic murmur Pulses: PRESENT: normal dorsalis pedis pul Extremities exam: PRESENT: tenderness, other - Right upper extremity limited range of motion due to severe pain. Right shoulder is exquisitely tender to palpation. Pulses intact Results Laboratory Results: 05/17/18 09:47 05/16/18 03:57 05/17/18 09:47 WBC 16.2 H RBC 3.52 L Hgb 10.9 L Hct 31.8 L MCV 91 MCH 30.9 MCHC 34.2 RDW 14.1 H Plt Count 312 Seg Neutrophils % 89.1 H Lymphocytes % 6.9 L Monocytes % 3.5 Eosinophils % 0.3 Basophils % 0.2 Absolute Neutrophils 14.4 H Absolute Lymphocytes 1.1 Absolute Monocytes 0.6 Absolute Eosinophils 0.1 Absolute Basophils 0.0 Impressions: Shoulder X-Ray 05/15/18 01:55 IMPRESSION: Widening of the acromioclavicular joint concerning for AC separation with nondisplaced fracture of the distal clavicle. Associated soft tissue swelling. 2010 [employer]- All Rights Reserved Upper Extremity CT 05/15/18 02:51 IMPRESSION: Cellulitis and myositis of the right supraclavicular region with cortical irregularity of the distal clavicle/AC joint. No discrete or defined abscess or enhancing abnormality. Findings of the AC joint may in part relate to degenerative change. However, an infectious process would be difficult to exclude entirely given the degree of soft tissue edema and inflammation.. TECHNICAL DOCUMENTATION: Quality ID # 436: Final reports with documentation of one or more dose reduction techniques (e.g., Automated exposure control, adjustment of the mA and/or kV according to patient size, use of iterative reconstruction technique) 2010 [employer]- All Rights Reserved Assessment & Plan - Diagnosis (1) Spider bite Qualifiers: Encounter type: initial encounter Is this a current diagnosis for this admission?: Yes Plan: Unknown a spider. Continue supportive measures. Persistent excruciating pain however erythema and swelling of the right shoulder has resolved. Right upper extremity is very tender to palpation and patient has limited range of motion due to severe pain pulses are intact as well as sensation. MRI upper extremity pending. Bryson was on board. Continue vancomycin and Zosyn. (2) Cellulitis Qualifiers: Site of cellulitis: unspecified site Qualified Code(s): L03.90 - Cellulitis , unspecified Is this a current diagnosis for this admission?: Yes Plan: Likely polymicrobial. Caused secondary to spider bite as well as the fact that patient manipulated the site of spider bite with a razor. Patient is growing gram-positive cocci 2 out of 2 we will continue vancomycin and Zosyn pending sensitivity. (3) Myositis Qualifiers: Myositis type: unspecified type Myositis location: unspecified site Qualified Code(s): M60.9 - Myositis, unspecified Is this a current diagnosis for this admission?: Yes Plan: As per problem #2. Pending right upper shoulder MRI. (4) Tobacco abuse Is this a current diagnosis for this admission?: Yes Plan: Counseled on quitting. Continue nicotine patch. (5) Right shoulder pain Qualifiers: Chronicity: acute Qualified Code(s): M25.511 - Pain in right shoulder Is this a current diagnosis for this admission?: Yes Plan: Secondary to problem #1. Continue supportive measures. (6) Gram-positive bacteremia Is this a current diagnosis for this admission?: Yes Plan: Likely secondary to complication of a spider bite caused by manipulation of the wound by patient. Culture positive for 2 out of 2 gram-positive coccus. Pending sensitivity. Continue broad-spectrum antibiotics.
[2018-05-17] MEDS: NICOTINE 21 MG/24 HR PATCH.TD24 TD SCH (10:45)
--- NOTE | 2018-05-17 22:33 | RADIOLOGY REPORT (SQ) ---
MR UPPER EXTREMITY WITHOUT THEN WITH IV CONTRAST HISTORY: Right shoulder pain and swelling. Evaluate for myositis and myonecrosis. COMPARISON: CT dated 05/15/2018. TECHNIQUE: Multiplanar multisequence imaging of the right upper extremity was performed with intravenous gadolinium. FINDINGS: Diffuse enlargement of the trapezius muscle along with increased T2 signal throughout the trapezius musculature and to lesser extent the deltoid musculature. There are multiple areas of T1 iso to hyperintense, T2 hyperintense, nonenhancing areas predominantly within the trapezius muscle. The largest nonenhancing area measures approximately 3.7 cm in the medial trapezius, although the full extent is out of the [id number]. Additionally, there is abnormal T1 and T2 signal within the distal clavicle and acromion with erosive changes along the joint space, as well as a large AC joint effusion. Rotator cuff is grossly intact. Intra-articular biceps tendon is intact. No glenohumeral joint effusion. IMPRESSION: 1. Diffuse myositis predominantly involving the trapezius and deltoid musculature, with multiple nonenhancing areas within the trapezius muscle. Given the patient's reported history of spider bite and self-induced trauma to the region, findings are highly concerning for pyomyositis (bacterial myositis) and myonecrosis. 2. Erosive changes surrounding the AC joint with a large joint effusion, which is concerning for septic joint and superimposed osteomyelitis. Emergent findings were discussed with Nurse Mcintosh at 2117 on 05/17/2018. Findings will be relayed to the surgical team for follow-up.
[2018-05-18] MEDS: ACETAMINOPHEN 325 MG TABLET PO PRN (00:27)
[2018-05-18] MEDS: VANCOMYCIN HCL 1,500 MG in DEXTROSE 5%-WATER 250 ML IV SCH ×4 (01:28→21:22)
[2018-05-18] MEDS: NORMAL SALINE 1000 ML 1,000 ML IV PRN (01:29)
[2018-05-18] MEDS: HYDROMORPHONE HCL INJ/PF 2 MG/ML AMPULE IV PRN ×8 (01:33→22:52)
[2018-05-18] MEDS: AMPICILLIN SODIUM/SULBACTAM NA 3 GM in NORMAL SALINE 100 ML IV SCH ×4 (03:57→21:21)
[2018-05-18] MEDS: KETOROLAC TROMETHAMINE INJ/PF 30 MG/1 ML SDV IV PRN ×4 (04:01→22:53)
[2018-05-18] MEDS: HEPARIN SOD (PORCINE) 5,000 UNIT/ML 1 ML SYRINGE SUBCUT SCH ×3 (06:31→21:24)
[2018-05-18 07:22] LABS: ABSOLUTE BASOPHILS # (AUTO) 0.1 10^3/uL (0.0-0.2); ABSOLUTE EOSINOPHILS # (AUTO) 0.1 10^3/uL (0.0-0.6); ABSOLUTE LYMPHOCYTES (AUTO) 1.7 10^3/uL (0.5-4.7); ABSOLUTE MONOCYTES (AUTO) 1.3 10^3/uL (0.1-1.4); ABSOLUTE NEUT (AUTO) 11.9 10^3/uL (1.7-8.2); BASOPHILS % (AUTO) 0.8 % (0-2); EOSINOPHILS % (AUTO) 0.9 % (0-6); HEMATOCRIT 34.2 % (37.9-51.0); HEMOGLOBIN 11.8 g/dL (13.5-17.0); LYMPHOCYTES % (AUTO) 11.4 % (13-45); MEAN CORPUSCULAR HEMOGLOBIN 31.1 pg (27.0-33.4); MEAN CORPUSCULAR HGB CONC 34.6 g/dL (32.0-36.0); MEAN CORPUSCULAR VOLUME 90 fl (80-97); MONOCYTES % (AUTO) 8.5 % (3-13); PLATELET COUNT 388 10^3/uL (150-450); RED CELL DISTRIBUTION WIDTH 14.2 % (11.5-14.0); SEGMENTED NEUTROPHILS % (AUTO) 78.4 % (42-78); TOTAL CELLS COUNTED % (AUTO) 100 %; WHITE BLOOD COUNT 15.2 10^3/uL (4.0-10.5)
[2018-05-18 07:39] LABS: ALANINE AMINOTRANSFERASE 52 U/L (21-72); ALBUMIN 2.5 g/dL (3.5-5.0); ALKALINE PHOSPHATASE 89 U/L (38-126); ANION GAP 11 (5-19); ASPARTATE AMINO TRANSFERASE 33 U/L (17-59); BILIRUBIN,DIRECT 0.1 mg/dL (0.0-0.4); BILIRUBIN,TOTAL 0.1 mg/dL (0.2-1.3); BLOOD UREA NITROGEN 15 mg/dL (7-20); CALCIUM 8.3 mg/dL (8.4-10.2); CARBON DIOXIDE 26 mmol/L (22-30); CHLORIDE 104 mmol/L (98-107); GLUCOSE 91 mg/dL (75-110); POTASSIUM 4.1 mmol/L (3.6-5.0); SODIUM 140.9 mmol/L (137-145); TOTAL PROTEIN 5.5 g/dL (6.3-8.2)
[2018-05-18] MEDS: NICOTINE 21 MG/24 HR PATCH.TD24 TD SCH (10:03)
--- NOTE | 2018-05-18 12:53 | PDOC PROGRESS REPORT ---
Subjective Progress Note for:: 05/18/18 Subjective:: Patient states the pain is about the same. Still complaining of pain in the neck and posterior shoulder. Some tenderness over the AC joint. Limited range of motion unchanged. Reason For Visit: SPIDER BITE Physical Exam Vital Signs: Temp Pulse Resp BP Pulse Ox 36.7 C 83 18 123/69 100 05/18/18 12:01 05/18/18 12:01 05/18/18 12:01 05/18/18 12:01 05/18/18 12:01 Intake & Output 05/17/18 05/18/18 05/19/18 06:59 06:59 06:59 Intake Total 7345 3389 100 Output Total 650 950 Balance 6695 2439 100 Weight 95.3 kg 96.4 kg General appearance: PRESENT: no acute distress Head exam: PRESENT: atraumatic, normocephalic Eye exam: PRESENT: EOMI Adult Front & Back Image: 1 - Scab over the bite on the lateral aspect of the shoulder. Swelling trapezius and deltoid muscle with decreased range of motion second to pain. Tender palpation over the AC joint with pain with cross body arm test. Neurovascular intact distally. Results Laboratory Results: 05/18/18 06:29 05/18/18 06:29 05/18/18 05/18/18 06:29 06:29 WBC 15.2 H RBC 3.80 L Hgb 11.8 L Hct 34.2 L MCV 90 MCH 31.1 MCHC 34.6 RDW 14.2 H Plt Count 388 Seg Neutrophils % 78.4 H Lymphocytes % 11.4 L Monocytes % 8.5 Eosinophils % 0.9 Basophils % 0.8 Absolute Neutrophils 11.9 H Absolute Lymphocytes 1.7 Absolute Monocytes 1.3 Absolute Eosinophils 0.1 Absolute Basophils 0.1 Sodium 140.9 Potassium 4.1 Chloride 104 Carbon Dioxide 26 Anion Gap 11 BUN 15 Creatinine 0.69 Est GFR ( Amer) > 60 Est GFR (Non-Af Amer) > 60 Glucose 91 Calcium 8.3 L Total Bilirubin 0.1 L AST 33 ALT 52 Alkaline Phosphatase 89 Total Protein 5.5 L Albumin 2.5 L Impressions: Shoulder X-Ray 05/15/18 01:55 IMPRESSION: Widening of the acromioclavicular joint concerning for AC separation with nondisplaced fracture of the distal clavicle. Associated soft tissue swelling. 2010 [employer]- All Rights Reserved Upper Extremity CT 05/15/18 02:51 IMPRESSION: Cellulitis and myositis of the right supraclavicular region with cortical irregularity of the distal clavicle/AC joint. No discrete or defined abscess or enhancing abnormality. Findings of the AC joint may in part relate to degenerative change. However, an infectious process would be difficult to exclude entirely given the degree of soft tissue edema and inflammation.. TECHNICAL DOCUMENTATION: Quality ID # 436: Final reports with documentation of one or more dose reduction techniques (e.g., Automated exposure control, adjustment of the mA and/or kV according to patient size, use of iterative reconstruction technique) 2010 [employer]- All Rights Reserved Upper Extremity MRI 05/17/18 10:29 IMPRESSION: 1. Diffuse myositis predominantly involving the trapezius and deltoid musculature, with multiple nonenhancing areas within the trapezius muscle. Given the patient's reported history of spider bite and self-induced trauma to the region, findings are highly concerning for pyomyositis (bacterial myositis) and myonecrosis. 2. Erosive changes surrounding the AC joint with a large joint effusion, which is concerning for septic joint and superimposed osteomyelitis. Emergent findings were discussed with Nurse Mcintosh at 2117 on 05/17/2018. Findings will be relayed to the surgical team for follow-up. Status: Image reviewed by md - MRI showing myositis of the trapezius and deltoid with joint fluid in the AC joint. Cannot rule out infectious process. 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 Difficult to differentiate with the acute myositis and fluid in the AC joint. Will order a sed rate and a CRP and follow-up tomorrow and discuss potential open I&D of the AC joint and distal clavicle excision no later than Wednesday.
--- NOTE | 2018-05-18 13:55 | PDOC PROGRESS REPORT ---
Subjective Progress Note for:: 05/18/18 Subjective:: JOSE MARTINES is a 37 year old male with past medical history of a spider bite 3 years ago. 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 Presented to ED after a spider bite. He stated that while sleeping around 10 PM of sudden pain in his right shoulder , woke up and went to the bathroom and noticed 2 small dots over his lateral shoulder, he went to his bathroom and cut the piece of his skin out with a razor and squeezed the lesion and he states that some pus came out. He noticed that he was having intense burning sensation associated with rapidly expanding erythema and edema extending to his right neck and right upper chest with excruciating right shoulder pain and tenderness to very light palpation. Denies fever, chills, nausea, vomiting, dizziness, lightheadedness, shortness of breath, chest pain, cough, wheezing, abdominal pains, changes on his urine or bowel movements. In the ED right shoulder x-ray showed thinning of AC concerning for AC separation with nondisplaced fracture of the distal clavicle with associated soft tissue swelling. All of CT showed right shoulder cellulitis and myelitis and right supraclavicular region with cortical irregularity of the distal clavicle and AC joint. No collection or abscess were noted. Patient was admitted patient for management of his pain and was started on IV vancomycin and Zosyn. Ortho was consulted and recommendation was to monitor patient and if pain does not improve to do a follow-up MRI of the right shoulder. 05/16/2018. No acute events overnight. Patient is resting in his bed complaining that he has not been able to sleep all night due to persistent right shoulder pain. States that he has had another spider bite 3 years ago and he had similar pain and his pain was managed by Dilaudid. He denies any fever, chills, nausea, vomiting, diarrhea, constipation or any urinary symptoms. 05/17/2018. No acute events overnight. Patient's right shoulder pain is better controlled with increasing his Dilaudid frequency however right shoulder is extremely exquisitely tender to palpation and the swelling and range of motion has not improved. Patient denies any fever, chills, nausea, vomiting , diarrhea, constipation or any urinary symptoms. 05/18/2018. Patient is still having persistent right upper extremity pain with limited range of motion which is controlled with IV narcotics. He had an MRI of right upper extremity yesterday. Patient is ambulatory and p.o. tolerant denies any fever, chills, nausea, vomiting, diarrhea or any constipation. Reason For Visit: SPIDER BITE Physical Exam Vital Signs: Temp Pulse Resp BP Pulse Ox 98.1 F 83 18 123/69 100 05/18/18 12:01 05/18/18 12:01 05/18/18 12:01 05/18/18 12:01 05/18/18 12:01 Intake & Output 05/17/18 05/18/18 05/19/18 06:59 06:59 06:59 Intake Total 7345 3389 100 Output Total 650 950 Balance 6695 2439 100 Weight 95.3 kg 96.4 kg General appearance: PRESENT: no acute distress, well-developed, well-nourished Respiratory exam: PRESENT: clear to auscultation sally. ABSENT: rales, rhonchi, wheezes Cardiovascular exam: PRESENT: RRR. ABSENT: diastolic murmur, rubs, systolic murmur GI/Abdominal exam: PRESENT: normal bowel sounds, soft. ABSENT: distended, guarding, mass, organolmegaly, rebound, tenderness Musculoskeletal exam: PRESENT: other - Scab over right shoulder. Significant swelling and exquisite tenderness over the entire trapezius and deltoid muscle. No erythema. Limited range of motion restricted by pain. Distally neurovascular intact. Results Laboratory Results: 05/18/18 06:29 05/18/18 06:29 05/18/18 05/18/18 05/18/18 06:29 06:29 06:29 WBC 15.2 H RBC 3.80 L Hgb 11.8 L Hct 34.2 L MCV 90 MCH 31.1 MCHC 34.6 RDW 14.2 H Plt Count 388 Seg Neutrophils % 78.4 H Lymphocytes % 11.4 L Monocytes % 8.5 Eosinophils % 0.9 Basophils % 0.8 Absolute Neutrophils 11.9 H Absolute Lymphocytes 1.7 Absolute Monocytes 1.3 Absolute Eosinophils 0.1 Absolute Basophils 0.1 Sodium 140.9 Potassium 4.1 Chloride 104 Carbon Dioxide 26 Anion Gap 11 BUN 15 Creatinine 0.69 Est GFR ( Amer) > 60 Est GFR (Non-Af Amer) > 60 Glucose 91 Calcium 8.3 L Total Bilirubin 0.1 L AST 33 ALT 52 Alkaline Phosphatase 89 C-Reactive Protein 187.9 H Total Protein 5.5 L Albumin 2.5 L Impressions: Shoulder X-Ray 05/15/18 01:55 IMPRESSION: Widening of the acromioclavicular joint concerning for AC separation with nondisplaced fracture of the distal clavicle. Associated soft tissue swelling. 2010 [employer]- All Rights Reserved Upper Extremity CT 05/15/18 02:51 IMPRESSION: Cellulitis and myositis of the right supraclavicular region with cortical irregularity of the distal clavicle/AC joint. No discrete or defined abscess or enhancing abnormality. Findings of the AC joint may in part relate to degenerative change. However, an infectious process would be difficult to exclude entirely given the degree of soft tissue edema and inflammation.. TECHNICAL DOCUMENTATION: Quality ID # 436: Final reports with documentation of one or more dose reduction techniques (e.g., Automated exposure control, adjustment of the mA and/or kV according to patient size, use of iterative reconstruction technique) 2010 [employer]- All Rights Reserved Upper Extremity MRI 05/17/18 10:29 IMPRESSION: 1. Diffuse myositis predominantly involving the trapezius and deltoid musculature, with multiple nonenhancing areas within the trapezius muscle. Given the patient's reported history of spider bite and self-induced trauma to the region, findings are highly concerning for pyomyositis (bacterial myositis) and myonecrosis. 2. Erosive changes surrounding the AC joint with a large joint effusion, which is concerning for septic joint and superimposed osteomyelitis. Emergent findings were discussed with Nurse Mcintosh at 2117 on 05/17/2018. Findings will be relayed to the surgical team for follow-up. Assessment & Plan - Diagnosis (1) Spider bite Qualifiers: Encounter type: initial encounter Is this a current diagnosis for this admission?: Yes Plan: Unknown a spider. Continue supportive measures. Persistent excruciating pain however erythema and swelling of the right shoulder has resolved. Right upper extremity is very tender to palpation and patient has limited range of motion due to severe pain pulses are intact as well as sensation. Status post right upper extremity MRI on 05/17/2018. Concern for diffuse myositis/myonecrosis/osteomyelitis. Following possible I&D on Wednesday. Culture positive for staph MSSA however will continue Vanco and Zosyn until until tissue culture is available from possible I&D. (2) Cellulitis Qualifiers: Site of cellulitis: unspecified site Qualified Code(s): L03.90 - Cellulitis , unspecified Is this a current diagnosis for this admission?: Yes Plan: Likely polymicrobial. Caused secondary to spider bite as well as the fact that patient manipulated the site of spider bite with a razor. Patient is growing gram-positive cocci 2 out of 2 we will continue vancomycin and Zosyn pending sensitivity. (3) Myositis Qualifiers: Myositis type: unspecified type Myositis location: unspecified site Qualified Code(s): M60.9 - Myositis, unspecified Is this a current diagnosis for this admission?: Yes Plan: As per problem #2. (4) Tobacco abuse Is this a current diagnosis for this admission?: Yes Plan: Counseled on quitting. Continue nicotine patch. (5) Right shoulder pain Qualifiers: Chronicity: acute Qualified Code(s): M25.511 - Pain in right shoulder Is this a current diagnosis for this admission?: Yes Plan: Secondary to problem #1. Continue supportive measures. (6) Gram-positive bacteremia Is this a current diagnosis for this admission?: Yes Plan: Likely secondary to complication of a spider bite caused by manipulation of the wound by patient. Culture positive for 2 out of 2 gram-positive coccus. Continue broad-spectrum antibiotics until possible I&D on Wednesday.
--- NOTE | 2018-05-18 16:20 | Progress Note ---
Provider Note Provider Note: ID Consult Note Asked to review chart by Pharmacy. 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 Pt denied IVDU. He also denied trauma to the shoulder but reported that he frequently carried bundles of shingles on his shoulder. On initial exam, pt was noted to have R upper chest wall tenderness with palpation and erythema overlying the skin to the right mid-clavicular area, tenderness over the R deltoid and superior aspect of the humeral head, and scab/puncture wound to the lateral shoulder/R deltoid area with no surrounding erythema, decreased ROM due to pain. No murmur was noted. Pt had no fever, HR >90, leukocytosis present, no thrombocytopenia. SCr wnl. Vancomycin and Unasyn were ordered empirically. Blood cultures on admission grew MSSA in all four bottles. Repeat blood cultures on 05/16/18 have shown no growth to date. Imaging has included plain films of the shoulder that showed widening of the AC joint concerning for AC separation, cortical irregularity associated with the distal clavicle and extensive soft tissue swelling. CT scan of the R upper extremity with IV contrast on 05/15 showed subcutaneous inflammation in the R supraclavicular region without discrete or defined fluid collection and irregularity of the AC joint and distal clavicle and heterogeneous edematous appearance of the R deltoid musculature suspicious for myositis. MRI of the R upper extremity with and without contrast was read as showing diffuse myositis predominantly involving the trapezius and deltoid musculature with multiple nonenhancing areas within the trapezius concerning for pyomyositis and myonecrosis and erosive changes surrounding the AC joint with large joint effusion concerning for septic joint and superimposed osteomyelitis. Orthopedic Surgery was consulted and is being considered for I&D. 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 - The pathogenic organism responsible for the patient's presentation is not in question. Staph aureus is the most common cause of osteomyelitis and of pyomyositis, it was found in his blood, and it can also explain his pustular skin lesion. What is not clear is how this process actually began. The plain film findings do not agree with the patient's reported acute precipitant of a "spider bite" (or contiguous/hematogenous spread from a furuncle) occuring the day prior to admission. Septic involvement of the AC joint is uncommon, as is primary pyomyositis in temperate areas in otherwise immuncompetent, healthy adults. The most common underlying presidposing risk factor that would be associated with the patient's presentation is IVDU, although pt denied that in the ED. Recommendations - Recommend de-escalating from IV vancomycin and Unasyn to IV cefazolin 2 g IV q8h - Recommend getting a TTE (transthoracic echocardiogram) - Continue to evaluate patient for any evidence of other sites of infection based on history/exam (e.g. focal back tenderness on palpation or percussion over bony spine might prompt MRI with contrast to evaluate for infectious spondylodiscitis... pleuritic chest pain might prompt CXR and/or CT chest w/o contrast... Janeway lesions or Osler's nodes would signify need for echocardiography...) - Continue to evaluate the patient for evidence consistent with IVDU such as track vergara - HIV testing, as it is routinely recommended for all adults, and HIV infection has been reported also as a risk factor for pyomyositis - At a minimum, for Staph aureus bacteremia, duration of therapy should be 2 weeks starting from the date of negative blood cultures, but can be longer depending on presence or risk for deep seated source or metastatic foci of infection and rapidity of bacteremia clearance and response to therapy. - Anticipated duration of therapy is likely to be prolonged given the bony changes consistent with osteomyelitis. Pt will likely need IV cefazolin 2 g q8h for 6 weeks. However, assuming blood cultures from 05/16 remain negative and no evidence of endocarditis (or other deep seated infection) is present, it might be possible for the patient to complete 2 weeks of IV cefazolin (end date May 30 ) followed by either PO linezolid 600 mg BID for 4 weeks or PO Bactrim 2 DS BID plus rifampin 600 mg PO daily for 4 weeks for osteomyelitis, if there is a need to limit duration of IV antibiotic therapy for a compelling reason. Kem Staples MD [facility] Infectious Diseases pager [phone]
[2018-05-18] MEDS: PROMETHAZINE HCL 25 MG TABLET PO PRN (23:30)
[2018-05-19] MEDS: AMPICILLIN SODIUM/SULBACTAM NA 3 GM in NORMAL SALINE 100 ML IV SCH ×2 (04:47→08:15)
[2018-05-19] MEDS: VANCOMYCIN HCL 1,500 MG in DEXTROSE 5%-WATER 250 ML IV SCH ×2 (04:48→09:46)
[2018-05-19 05:42] LABS: ABSOLUTE BASOPHILS # (AUTO) 0.1 10^3/uL (0.0-0.2); ABSOLUTE EOSINOPHILS # (AUTO) 0.1 10^3/uL (0.0-0.6); ABSOLUTE LYMPHOCYTES (AUTO) 1.7 10^3/uL (0.5-4.7); ABSOLUTE MONOCYTES (AUTO) 1.1 10^3/uL (0.1-1.4); ABSOLUTE NEUT (AUTO) 9.4 10^3/uL (1.7-8.2); BASOPHILS % (AUTO) 0.8 % (0-2); EOSINOPHILS % (AUTO) 1.1 % (0-6); HEMATOCRIT 34.6 % (37.9-51.0); HEMOGLOBIN 11.8 g/dL (13.5-17.0); LYMPHOCYTES % (AUTO) 13.6 % (13-45); MEAN CORPUSCULAR HEMOGLOBIN 31.1 pg (27.0-33.4); MEAN CORPUSCULAR HGB CONC 34.2 g/dL (32.0-36.0); MEAN CORPUSCULAR VOLUME 91 fl (80-97); MONOCYTES % (AUTO) 8.7 % (3-13); PLATELET COUNT 426 10^3/uL (150-450); RED BLOOD COUNT 3.81 10^6/uL (4.35-5.55); RED CELL DISTRIBUTION WIDTH 14.6 % (11.5-14.0); SEGMENTED NEUTROPHILS % (AUTO) 75.8 % (42-78); TOTAL CELLS COUNTED % (AUTO) 100 %; WHITE BLOOD COUNT 12.4 10^3/uL (4.0-10.5)
[2018-05-19 06:02] LABS: ALANINE AMINOTRANSFERASE 62 U/L (21-72); ALBUMIN 2.6 g/dL (3.5-5.0); ALKALINE PHOSPHATASE 85 U/L (38-126); ANION GAP 10 (5-19); ASPARTATE AMINO TRANSFERASE 35 U/L (17-59); BILIRUBIN,DIRECT 0.1 mg/dL (0.0-0.4); BILIRUBIN,TOTAL 0.2 mg/dL (0.2-1.3); BLOOD UREA NITROGEN 14 mg/dL (7-20); CALCIUM 8.5 mg/dL (8.4-10.2); CARBON DIOXIDE 26 mmol/L (22-30); CHLORIDE 106 mmol/L (98-107); GLUCOSE 86 mg/dL (75-110); POTASSIUM 4.3 mmol/L (3.6-5.0); SODIUM 141.5 mmol/L (137-145); TOTAL PROTEIN 5.6 g/dL (6.3-8.2)
[2018-05-19] MEDS: HEPARIN SOD (PORCINE) 5,000 UNIT/ML 1 ML SYRINGE SUBCUT SCH ×3 (06:12→22:50)
[2018-05-19] MEDS: HYDROMORPHONE HCL INJ/PF 2 MG/ML AMPULE IV PRN ×6 (06:17→22:46)
[2018-05-19] MEDS: KETOROLAC TROMETHAMINE INJ/PF 30 MG/1 ML SDV IV PRN ×3 (08:49→22:47)
--- NOTE | 2018-05-19 09:15 | PDOC PROGRESS REPORT ---
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 Reason For Visit: SPIDER BITE Physical Exam Vital Signs: Temp Pulse Resp BP Pulse Ox 37.3 C 69 18 131/76 H 100 05/18/18 23:53 05/18/18 23:53 05/18/18 23:53 05/18/18 23:53 05/18/18 23:53 Intake & Output 05/18/18 05/19/18 05/20/18 06:59 06:59 06:59 Intake Total 3389 2584 Output Total 950 Balance 2439 2584 Weight 96.4 kg 96.1 kg Adult Front & Back Image: 1 - Trapezius continues to be swollen and tender and indurated. AC joint is mildly tender. Still has decreased range of motion second pain but neurovascular intact distally. Results Laboratory Results: 05/19/18 05:10 05/19/18 05:10 05/18/18 05/19/18 05/19/18 06:29 05:10 05:10 WBC 12.4 H RBC 3.81 L Hgb 11.8 L Hct 34.6 L MCV 91 MCH 31.1 MCHC 34.2 RDW 14.6 H Plt Count 426 Seg Neutrophils % 75.8 Lymphocytes % 13.6 Monocytes % 8.7 Eosinophils % 1.1 Basophils % 0.8 Absolute Neutrophils 9.4 H Absolute Lymphocytes 1.7 Absolute Monocytes 1.1 Absolute Eosinophils 0.1 Absolute Basophils 0.1 Sodium 141.5 Potassium 4.3 Chloride 106 Carbon Dioxide 26 Anion Gap 10 BUN 14 Creatinine 0.68 Est GFR ( Amer) > 60 Est GFR (Non-Af Amer) > 60 Glucose 86 Calcium 8.5 Total Bilirubin 0.2 AST 35 ALT 62 Alkaline Phosphatase 85 C-Reactive Protein 187.9 H Total Protein 5.6 L Albumin 2.6 L Impressions: Shoulder X-Ray 05/15/18 01:55 IMPRESSION: Widening of the acromioclavicular joint concerning for AC separation with nondisplaced fracture of the distal clavicle. Associated soft tissue swelling. 2010 [employer]- All Rights Reserved Upper Extremity CT 05/15/18 02:51 IMPRESSION: Cellulitis and myositis of the right supraclavicular region with cortical irregularity of the distal clavicle/AC joint. No discrete or defined abscess or enhancing abnormality. Findings of the AC joint may in part relate to degenerative change. However, an infectious process would be difficult to exclude entirely given the degree of soft tissue edema and inflammation.. TECHNICAL DOCUMENTATION: Quality ID # 436: Final reports with documentation of one or more dose reduction techniques (e.g., Automated exposure control, adjustment of the mA and/or kV according to patient size, use of iterative reconstruction technique) 2010 [employer]- All Rights Reserved Upper Extremity MRI 05/17/18 10:29 IMPRESSION: 1. Diffuse myositis predominantly involving the trapezius and deltoid musculature, with multiple nonenhancing areas within the trapezius muscle. Given the patient's reported history of spider bite and self-induced trauma to the region, findings are highly concerning for pyomyositis (bacterial myositis) and myonecrosis. 2. Erosive changes surrounding the AC joint with a large joint effusion, which is concerning for septic joint and superimposed osteomyelitis. Emergent findings were discussed with Nurse Mcintosh at 2117 on 05/17/2018. Findings will be relayed to the surgical team for follow-up. Status: Image reviewed by me Assessment & Plan - Diagnosis (1) Right shoulder pain Qualifiers: Chronicity: acute Qualified Code(s): M25.511 - Pain in right shoulder Is this a current diagnosis for this admission?: Yes (2) Spider bite Qualifiers: Encounter type: initial encounter Is this a current diagnosis for this admission?: Yes - Plan Summary Plan Summary: 37-year-old gentleman status post spider bite with 1 culture showing some staph in his blood cultures but the following day they were negative. He is not septic at the moment. States that the pain is slowly improving though still swollen and tender with the MRI showing fluid in the AC joint and myositis of the trapezius and deltoid. Sed rate and CRP were repeated and are slightly improved and his white count has trended down but clinically patient has plateaued so patient may be a candidate for I&D of the AC joint with distal clavicle resection and possible debridement of the trapezius if warranted. We will place the patient n.p.o. tonight and reassess tomorrow for the possible I&D
[2018-05-19] MEDS: NICOTINE 21 MG/24 HR PATCH.TD24 TD SCH (09:44)
[2018-05-19] MEDS: GABAPENTIN 300 MG CAPSULE PO SCH ×2 (12:19→22:49)
--- NOTE | 2018-05-19 13:33 | PDOC PROGRESS REPORT ---
Subjective Progress Note for:: 05/19/18 Subjective:: JOSE MARTINES is a 37 year old male with past medical history of a spider bite 3 years ago. 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 Presented to ED after a spider bite. He stated that while sleeping around 10 PM of sudden pain in his right shoulder , woke up and went to the bathroom and noticed 2 small dots over his lateral shoulder, he went to his bathroom and cut the piece of his skin out with a razor and squeezed the lesion and he states that some pus came out. He noticed that he was having intense burning sensation associated with rapidly expanding erythema and edema extending to his right neck and right upper chest with excruciating right shoulder pain and tenderness to very light palpation. Denies fever, chills, nausea, vomiting, dizziness, lightheadedness, shortness of breath, chest pain, cough, wheezing, abdominal pains, changes on his urine or bowel movements. In the ED right shoulder x-ray showed thinning of AC concerning for AC separation with nondisplaced fracture of the distal clavicle with associated soft tissue swelling. All of CT showed right shoulder cellulitis and myelitis and right supraclavicular region with cortical irregularity of the distal clavicle and AC joint. No collection or abscess were noted. Patient was admitted patient for management of his pain and was started on IV vancomycin and Zosyn. Ortho was consulted and recommendation was to monitor patient and if pain does not improve to do a follow-up MRI of the right shoulder. 05/16/2018. No acute events overnight. Patient is resting in his bed complaining that he has not been able to sleep all night due to persistent right shoulder pain. States that he has had another spider bite 3 years ago and he had similar pain and his pain was managed by Dilaudid. He denies any fever, chills, nausea, vomiting, diarrhea, constipation or any urinary symptoms. 05/17/2018. No acute events overnight. Patient's right shoulder pain is better controlled with increasing his Dilaudid frequency however right shoulder is extremely exquisitely tender to palpation and the swelling and range of motion has not improved. Patient denies any fever, chills, nausea, vomiting , diarrhea, constipation or any urinary symptoms. 05/18/2018. Patient is still having persistent right upper extremity pain with limited range of motion which is controlled with IV narcotics. He had an MRI of right upper extremity yesterday. Patient is ambulatory and p.o. tolerant denies any fever, chills, nausea, vomiting, diarrhea or any constipation. 05/19/2018. He still has persistent right upper extremity pain, swelling however his range of motion is improving slightly. He is p.o. tolerant and ambulatory very pleasant and cooperative with physical examination. He denies any fever, shortness of breath, chest pain, chills, nausea, vomiting, diarrhea or any abdominal pain. Reason For Visit: SPIDER BITE Physical Exam Vital Signs: Temp Pulse Resp BP Pulse Ox 98.3 F 69 17 123/72 100 05/19/18 12:36 05/19/18 12:36 05/19/18 12:36 05/19/18 12:36 05/19/18 12:36 Intake & Output 05/18/18 05/19/18 05/20/18 06:59 06:59 06:59 Intake Total 3389 2584 1350 Output Total 950 Balance 2439 2584 1350 Weight 96.4 kg 96.1 kg General appearance: PRESENT: no acute distress Respiratory exam: PRESENT: clear to auscultation sally. ABSENT: rales, rhonchi, wheezes Cardiovascular exam: PRESENT: RRR. ABSENT: diastolic murmur, rubs, systolic murmur Pulses: PRESENT: normal dorsalis pedis pul GI/Abdominal exam: PRESENT: normal bowel sounds, soft. ABSENT: distended, guarding, mass, organolmegaly, rebound, tenderness Extremities exam: PRESENT: other - Right upper trapezius and deltoid muscle persistent swelling and tenderness. Range of motion slightly improving. Neurovascularly intact distally.. ABSENT: calf tenderness, clubbing, pedal edema Musculoskeletal exam: PRESENT: tenderness - Diffuse thoracic and lumbar tenderness to palpation. Results Laboratory Results: 05/19/18 05:10 05/19/18 05:10 05/18/18 05/19/18 05/19/18 06:29 05:10 05:10 WBC 12.4 H RBC 3.81 L Hgb 11.8 L Hct 34.6 L MCV 91 MCH 31.1 MCHC 34.2 RDW 14.6 H Plt Count 426 Seg Neutrophils % 75.8 Lymphocytes % 13.6 Monocytes % 8.7 Eosinophils % 1.1 Basophils % 0.8 Absolute Neutrophils 9.4 H Absolute Lymphocytes 1.7 Absolute Monocytes 1.1 Absolute Eosinophils 0.1 Absolute Basophils 0.1 Sodium 141.5 Potassium 4.3 Chloride 106 Carbon Dioxide 26 Anion Gap 10 BUN 14 Creatinine 0.68 Est GFR ( Amer) > 60 Est GFR (Non-Af Amer) > 60 Glucose 86 Calcium 8.5 Total Bilirubin 0.2 AST 35 ALT 62 Alkaline Phosphatase 85 C-Reactive Protein 187.9 H Total Protein 5.6 L Albumin 2.6 L Impressions: Shoulder X-Ray 05/15/18 01:55 IMPRESSION: Widening of the acromioclavicular joint concerning for AC separation with nondisplaced fracture of the distal clavicle. Associated soft tissue swelling. 2010 [employer]- All Rights Reserved Upper Extremity CT 05/15/18 02:51 IMPRESSION: Cellulitis and myositis of the right supraclavicular region with cortical irregularity of the distal clavicle/AC joint. No discrete or defined abscess or enhancing abnormality. Findings of the AC joint may in part relate to degenerative change. However, an infectious process would be difficult to exclude entirely given the degree of soft tissue edema and inflammation.. TECHNICAL DOCUMENTATION: Quality ID # 436: Final reports with documentation of one or more dose reduction techniques (e.g., Automated exposure control, adjustment of the mA and/or kV according to patient size, use of iterative reconstruction technique) 2010 [employer]- All Rights Reserved Upper Extremity MRI 05/17/18 10:29 IMPRESSION: 1. Diffuse myositis predominantly involving the trapezius and deltoid musculature, with multiple nonenhancing areas within the trapezius muscle. Given the patient's reported history of spider bite and self-induced trauma to the region, findings are highly concerning for pyomyositis (bacterial myositis) and myonecrosis. 2. Erosive changes surrounding the AC joint with a large joint effusion, which is concerning for septic joint and superimposed osteomyelitis. Emergent findings were discussed with Nurse Mcintosh at 2117 on 05/17/2018. Findings will be relayed to the surgical team for follow-up. Assessment & Plan - Diagnosis (1) Spider bite Qualifiers: Encounter type: initial encounter Is this a current diagnosis for this admission?: Yes Plan: Unknown a spider. Continue supportive measures. Persistent excruciating pain however erythema and swelling of the right shoulder has resolved. Right upper extremity is very tender to palpation and patient has limited range of motion due to severe pain pulses are intact as well as sensation. Status post right upper extremity MRI on 05/17/2018. Concern for diffuse myositis/myonecrosis/osteomyelitis. Orth on board possible I&D on Wednesday. Culture positive for staph MSSA. Switch to cefazolin as per ID recommendation. (2) Cellulitis Qualifiers: Site of cellulitis: unspecified site Qualified Code(s): L03.90 - Cellulitis , unspecified Is this a current diagnosis for this admission?: Yes Plan: Blood culture growing gram-positive cocci in clusters MSSA.. Caused secondary to spider bite as well as the fact that patient manipulated the site of spider bite with a razor. Patient is growing gram-positive cocci 2 out of 2. Day 4 of IV vancomycin and Zosyn. DC vancomycin and Zosyn switched to cefazolin as per ID recommendation. (3) Myositis Qualifiers: Myositis type: unspecified type Myositis location: unspecified site Qualified Code(s): M60.9 - Myositis, unspecified Is this a current diagnosis for this admission?: Yes Plan: As per problem #2. (4) Tobacco abuse Is this a current diagnosis for this admission?: Yes Plan: Counseled on quitting. Continue nicotine patch. (5) Right shoulder pain Qualifiers: Chronicity: acute Qualified Code(s): M25.511 - Pain in right shoulder Is this a current diagnosis for this admission?: Yes Plan: Secondary to problem #1. Continue supportive measures. (6) Gram-positive bacteremia Is this a current diagnosis for this admission?: Yes Plan: Likely secondary to complication of a spider bite caused by manipulation of the wound by patient. Culture positive for 2 out of 2 gram-positive coccus. Continue broad-spectrum antibiotics until possible I&D on Wednesday. 2D echo to rule out endocarditis. MRI lumbar thoracic spine to rule out any spinal epidural abscesses.
[2018-05-19 14:39] LABS: ANION GAP 13 (5-19); BLOOD UREA NITROGEN 17 mg/dL (7-20); CALCIUM 8.5 mg/dL (8.4-10.2); CARBON DIOXIDE 22 mmol/L (22-30); CHLORIDE 106 mmol/L (98-107); GLUCOSE 83 mg/dL (75-110); POTASSIUM 4.5 mmol/L (3.6-5.0); SODIUM 141.2 mmol/L (137-145)
[2018-05-19] MEDS: CEFAZOLIN 2 GM/D5W RTU 2 GM/50 ML RTUPB IV SCH ×2 (14:41→22:48)
[2018-05-19] MEDS: PROMETHAZINE HCL 25 MG TABLET PO PRN (19:47)
[2018-05-20] MEDS: HYDROMORPHONE HCL INJ/PF 2 MG/ML AMPULE IV PRN ×6 (02:07→23:06)
[2018-05-20 05:55] LABS: HEMATOCRIT 36.2 % (37.9-51.0); HEMOGLOBIN 12.3 g/dL (13.5-17.0); MEAN CORPUSCULAR HEMOGLOBIN 30.8 pg (27.0-33.4); MEAN CORPUSCULAR VOLUME 91 fl (80-97); PLATELET COUNT 361 10^3/uL (150-450); RED CELL DISTRIBUTION WIDTH 14.2 % (11.5-14.0); WHITE BLOOD COUNT 12.3 10^3/uL (4.0-10.5)
[2018-05-20 06:17] LABS: ABSOLUTE LYMPHOCYTES# (MANUAL) 2.2 10^3/uL (0.5-4.7); ABSOLUTE MONOCYTES # (MANUAL) 1.1 10^3/uL (0.1-1.4); ABSOLUTE NEUTROPHILS# (MANUAL) 8.7 10^3/uL (1.7-8.2); BAND NEUTROPHILS % (MANUAL) 1 % (3-5); BASOPHILS % (MANUAL) 1 % (0-2); EOSINOPHILS % (MANUAL) 1 % (0-6); LYMPHOCYTES % (MANUAL) 18 % (13-45); MONOCYTES % (MANUAL) 9 % (3-13); SEGMENTED NEUTROPHILS % (MAN) 70 % (42-78); TOTAL CELLS COUNTED 100
[2018-05-20 06:18] LABS: RBC MORPHOLOGY COMMENT NORMO-CYTIC/CHROMIC; TOXIC GRANULATION SLIGHT; TOXIC VACUOLATION PRESENT
[2018-05-20 06:19] LABS: PLATELET CLUMPS PRESENT; PLATELET COMMENT ADEQUATE
[2018-05-20] MEDS: HEPARIN SOD (PORCINE) 5,000 UNIT/ML 1 ML SYRINGE SUBCUT SCH ×3 (06:55→23:09)
[2018-05-20] MEDS: CEFAZOLIN 2 GM/D5W RTU 2 GM/50 ML RTUPB IV SCH ×3 (06:56→23:09)
[2018-05-20] MEDS ORDERED: ONDANSETRON HCL INJ/PF 4 MG/2 ML SDV ONE (09:16)
[2018-05-20] MEDS ORDERED: FENTANYL CITRATE INJ/PF 100 MCG/2 ML AMPUL ONE ×2 (09:16→10:28)
[2018-05-20] MEDS ORDERED: MIDAZOLAM 2 MG/2 ML INJ ONE (09:16)
[2018-05-20] MEDS ORDERED: PROPOFOL INJ 200 MG/20 ML VIAL IV ONE (09:17)
[2018-05-20] MEDS ORDERED: BUPIVACAINE HCL 0.5 % INJ/PF 30 ML SDV ONE (09:33)
[2018-05-20] MEDS ORDERED: LIDOCAINE 1% INJ-PF (10 MG/ML) 30 ML SDV ONE (09:33)
[2018-05-20] MEDS ORDERED: BACITRACIN INJ 50,000 UNIT VIAL ONE (09:33)
[2018-05-20] MEDS: GABAPENTIN 300 MG CAPSULE PO SCH ×2 (10:13→23:09)
[2018-05-20] MEDS ORDERED: FENTANYL CITRATE INJ/PF 100 MCG/2 ML AMPUL IV PRN ×3 (11:09)
[2018-05-20] MEDS ORDERED: OXYCODONE-ACETAMINOPHEN 5-325 MG TABLET PO PRN ×2 (11:09)
[2018-05-20] MEDS ORDERED: MEPERIDINE HCL/PF INJ 25 MG/1 ML DISP.SYRIN IV PRN (11:09)
[2018-05-20] MEDS ORDERED: MORPHINE SULFATE 10 MG/ML INJ IV PRN (11:09)
[2018-05-20] MEDS ORDERED: DIPHENHYDRAMINE HCL 50 MG/ML VIAL IV PRN (11:09)
[2018-05-20] MEDS ORDERED: PROMETHAZINE HCL INJ 25 MG/1 ML VIAL IV PRN ×2 (11:09)
--- NOTE | 2018-05-20 11:26 | PDOC PROGRESS REPORT ---
Subjective Progress Note for:: 05/20/18 Subjective:: JOSE MARTINES is a 37 year old male with past medical history of a spider bite 3 years ago. 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 Presented to ED after a spider bite. He stated that while sleeping around 10 PM of sudden pain in his right shoulder , woke up and went to the bathroom and noticed 2 small dots over his lateral shoulder, he went to his bathroom and cut the piece of his skin out with a razor and squeezed the lesion and he states that some pus came out. He noticed that he was having intense burning sensation associated with rapidly expanding erythema and edema extending to his right neck and right upper chest with excruciating right shoulder pain and tenderness to very light palpation. Denies fever, chills, nausea, vomiting, dizziness, lightheadedness, shortness of breath, chest pain, cough, wheezing, abdominal pains, changes on his urine or bowel movements. In the ED right shoulder x-ray showed thinning of AC concerning for AC separation with nondisplaced fracture of the distal clavicle with associated soft tissue swelling. All of CT showed right shoulder cellulitis and myelitis and right supraclavicular region with cortical irregularity of the distal clavicle and AC joint. No collection or abscess were noted. Patient was admitted patient for management of his pain and was started on IV vancomycin and Zosyn. Ortho was consulted and recommendation was to monitor patient and if pain does not improve to do a follow-up MRI of the right shoulder. 05/16/2018. No acute events overnight. Patient is resting in his bed complaining that he has not been able to sleep all night due to persistent right shoulder pain. States that he has had another spider bite 3 years ago and he had similar pain and his pain was managed by Dilaudid. He denies any fever, chills, nausea, vomiting, diarrhea, constipation or any urinary symptoms. 05/17/2018. No acute events overnight. Patient's right shoulder pain is better controlled with increasing his Dilaudid frequency however right shoulder is extremely exquisitely tender to palpation and the swelling and range of motion has not improved. Patient denies any fever, chills, nausea, vomiting , diarrhea, constipation or any urinary symptoms. 05/18/2018. Patient is still having persistent right upper extremity pain with limited range of motion which is controlled with IV narcotics. He had an MRI of right upper extremity yesterday. Patient is ambulatory and p.o. tolerant denies any fever, chills, nausea, vomiting, diarrhea or any constipation. 05/19/2018. He still has persistent right upper extremity pain, swelling however his range of motion is improving slightly. He is p.o. tolerant and ambulatory very pleasant and cooperative with physical examination. He denies any fever, shortness of breath, chest pain, chills, nausea, vomiting, diarrhea or any abdominal pain. 05/20/2018. Patient has moderate improvement in his pain and range of motion of the right upper extremity. Pain is better managed. Has not had any fever chills nausea vomiting diarrhea constipation overnight. Patient is scheduled to have I&D of the AC joint with possible clavicle resection. Reason For Visit: SPIDER BITE Physical Exam Vital Signs: Temp Pulse Resp BP Pulse Ox 97.9 F 67 16 140/83 H 99 05/20/18 09:29 05/20/18 09:29 05/20/18 09:29 05/20/18 09:29 05/20/18 09:29 Intake & Output 05/19/18 05/20/18 05/21/18 06:59 06:59 06:59 Intake Total 2584 2390 50 Balance 2584 2390 50 Weight 96.1 kg 97.1 kg General appearance: PRESENT: no acute distress, well-developed, well-nourished Respiratory exam: PRESENT: clear to auscultation sally. ABSENT: rales, rhonchi, wheezes Cardiovascular exam: PRESENT: RRR. ABSENT: diastolic murmur, rubs, systolic murmur GI/Abdominal exam: PRESENT: normal bowel sounds, soft. ABSENT: distended, guarding, mass, organolmegaly, rebound, tenderness Extremities exam: PRESENT: full ROM, other - Right upper extremity tenderness over trapezius and deltoid muscle. Swelling has improved since yesterday. Motion has improved.. ABSENT: calf tenderness, clubbing, pedal edema Results Laboratory Results: 05/20/18 05:32 05/19/18 13:58 05/19/18 05/20/18 13:58 05:32 WBC 12.3 H RBC 4.00 L Hgb 12.3 L Hct 36.2 L MCV 91 MCH 30.8 MCHC 34.0 RDW 14.2 H Plt Count 361 Seg Neutrophils % Not Reportable Lymphocytes % Not Reportable Monocytes % Not Reportable Eosinophils % Not Reportable Basophils % Not Reportable Absolute Neutrophils Not Reportable Absolute Lymphocytes Not Reportable Absolute Monocytes Not Reportable Absolute Eosinophils Not Reportable Absolute Basophils Not Reportable Sodium 141.2 Potassium 4.5 Chloride 106 Carbon Dioxide 22 Anion Gap 13 BUN 17 Creatinine 0.79 Est GFR ( Amer) > 60 Est GFR (Non-Af Amer) > 60 Glucose 83 Calcium 8.5 Impressions: Shoulder X-Ray 05/15/18 01:55 IMPRESSION: Widening of the acromioclavicular joint concerning for AC separation with nondisplaced fracture of the distal clavicle. Associated soft tissue swelling. 2010 [employer]- All Rights Reserved Upper Extremity CT 05/15/18 02:51 IMPRESSION: Cellulitis and myositis of the right supraclavicular region with cortical irregularity of the distal clavicle/AC joint. No discrete or defined abscess or enhancing abnormality. Findings of the AC joint may in part relate to degenerative change. However, an infectious process would be difficult to exclude entirely given the degree of soft tissue edema and inflammation.. TECHNICAL DOCUMENTATION: Quality ID # 436: Final reports with documentation of one or more dose reduction techniques (e.g., Automated exposure control, adjustment of the mA and/or kV according to patient size, use of iterative reconstruction technique) 2010 [employer]- All Rights Reserved Upper Extremity MRI 05/17/18 10:29 IMPRESSION: 1. Diffuse myositis predominantly involving the trapezius and deltoid musculature, with multiple nonenhancing areas within the trapezius muscle. Given the patient's reported history of spider bite and self-induced trauma to the region, findings are highly concerning for pyomyositis (bacterial myositis) and myonecrosis. 2. Erosive changes surrounding the AC joint with a large joint effusion, which is concerning for septic joint and superimposed osteomyelitis. Emergent findings were discussed with Nurse Mcintosh at 2117 on 05/17/2018. Findings will be relayed to the surgical team for follow-up. Assessment & Plan - Diagnosis (1) Spider bite Qualifiers: Encounter type: initial encounter Is this a current diagnosis for this admission?: Yes Plan: Unknown a spider. Continue supportive measures. Pain improving. Erythema and swelling of the right shoulder has been also improving Right upper extremity is very tender to palpation and patient has limited range of motion due to severe pain pulses are intact as well as sensation. Status post right upper extremity MRI on 05/17/2018. Concern for diffuse myositis/myonecrosis/osteomyelitis. Of the OR for I&D of AC joint and possible clavicular resection. Cultures from 05/15/2018 Positive for MSSA. Patient switched to Vanco and Zosyn to cefazolin as per ID recommendation. Follow-up wound cultures. (2) Osteomyelitis of shoulder, right Qualifiers: Osteomyelitis type: acute hematogenous Qualified Code(s): M86.011 - Acute hematogenous osteomyelitis, right shoulder Is this a current diagnosis for this admission?: Yes Plan: As per problem #1. (3) Cellulitis Qualifiers: Site of cellulitis: unspecified site Qualified Code(s): L03.90 - Cellulitis , unspecified Is this a current diagnosis for this admission?: Yes Plan: Blood culture growing gram-positive cocci in clusters MSSA.. Caused secondary to spider bite as well as the fact that patient manipulated the site of spider bite with a razor. Patient is growing gram-positive cocci 2 out of 2. Day 4 of IV vancomycin and Zosyn. DC vancomycin and Zosyn switched to cefazolin as per ID recommendation. (4) Myositis Qualifiers: Myositis type: unspecified type Myositis location: unspecified site Qualified Code(s): M60.9 - Myositis, unspecified Is this a current diagnosis for this admission?: Yes Plan: As per problem #2. (5) Tobacco abuse Is this a current diagnosis for this admission?: Yes Plan: Counseled on quitting. Continue nicotine patch. (6) Right shoulder pain Qualifiers: Chronicity: acute Qualified Code(s): M25.511 - Pain in right shoulder Is this a current diagnosis for this admission?: Yes Plan: Secondary to problem #1. Continue supportive measures. (7) Gram-positive bacteremia Is this a current diagnosis for this admission?: Yes Plan: Likely secondary to complication of a spider bite caused by manipulation of the wound by patient. Blood culture from 1117 2017+ for MSSA. Received 4 days of IV Vanco and Zosyn. Switch to cefazolin on 05/19/2018 as per ID recommendation. Day of IV antibiotics. Blood cultures from 1118 2017- so far. Pending 2D echo and MRI lumbar thoracic spine to rule out any spinal epidural abscesses.
[2018-05-20] MEDS ORDERED: ACETAMINOPHEN 1,000 MG/100 ML RTUPB IV ONE (11:45)
[2018-05-20] MEDS: FENTANYL CITRATE INJ/PF 100 MCG/2 ML AMPUL ONE ×2 (11:45→11:51)
--- NOTE | 2018-05-20 11:49 | Operative Report ---
Operative Report PREOPERATIVE DIAGNOSIS: Right shoulder myositis, possible distal clavicle osteomyelitis POSTOPERATIVE DIAGNOSIS: Same OPERATION: Irrigation debridement with distal clavicle excision right shoulder ANESTHESIA: GA COMPLICATIONS: None ESTIMATED BLOOD LOSS: 15 cc PROCEDURE: Indication for above procedure: 37-year-old male who presented with pain and swelling in his right shoulder. He was found to have a spider bite and was started on IV antibiotics. Over the following days patient's symptoms improved however he continued to have residual discomfort. MRI was done demonstrating possible infectious myositis possible distal clavicle osteomyelitis. Given patient's failure to see significant improvement we discussed treatment options preoperatively including continued observation versus operative intervention which would include irrigation debridement right shoulder. After discussing the risks and benefits the joint decision was made to proceed with operative treatment. Procedure In Detail: Patient was seen and evaluated in the preoperative holding area. The RIGHT upper extremity was initialized and marked. Patient receiving scheduled antibiotics. Patient was taken back to the operative room where transferred to the operative table and placed under general anesthesia. Once they were adequately anesthetized a surgical team debriefing was performed ensuring all instrumentation was available, the surgical procedure was discussed with possible concerns reviewed. The upper extremity was prepped with ChloraPrep and draped in a sterile fashion. A timeout was done identifying correct patient, procedure and extremity everyone in attendance agree with this and verbalized no concerns. Longitudinal skin incision was made centered over the AC joint. Blunt dissection was performed elevating the fascia. Deltoid was split to exposed the anterior aspect of the AC joint. The capsule was then opened there was a defect within the capsule and softening of the distal clavicle. Cultures were obtained a small amount of fluid within the AC joint was encountered. Blunt dissection posteriorly within the trapezium demonstrated no evidence of purulent material or abscess. Exploration of the trapezium and shoulder demonstrate no evidence of further defect or infectious tract. The distal 7 mm of the clavicle was then removed with a sagittal saw and the edges contoured. The distal clavicle was then sent to pathology and microbiology for AFB, fungal , aerobic and anaerobic. Wound was then copiously irrigated with normal saline. Deep capsule was closed with interrupted 2-0 Vicryl suture. Deltoid closed with interrupted 2-0 Vicryl suture. Subcutaneous tissues were closed with interrupted 3-0 Monocryl suture. Skin was closed with joseph. 20 cc of 0.5% Marcaine without epinephrine was injected for postoperative pain control. Wound was dressed with OpSite. Sponge counts, instrument counts, needle counts counts were correct. Patient was then awoken from anesthesia. Transferred from the operating room table to the operating room stretcher. There was no intraoperative complications patient tolerated procedure well stable to PACU. Postoperative plan: Patient will continue on current IV antibiotic regimen. Once cultures are finalized likely stable for discharge home with p.o. antibiotics.
[2018-05-20] MEDS ORDERED: HYDROMORPHONE HCL INJ/PF 2 MG/ML AMPULE ONE (12:00)
[2018-05-20] MEDS: NORMAL SALINE 1000 ML 1,000 ML IV PRN ×2 (13:41→23:20)
[2018-05-20] MEDS: ACETAMINOPHEN 325 MG TABLET PO PRN (13:48)
[2018-05-20] MEDS: PROMETHAZINE HCL 25 MG TABLET PO PRN (13:48)
[2018-05-20] MEDS: NICOTINE 21 MG/24 HR PATCH.TD24 TD SCH (14:53)
[2018-05-21] MEDS: HYDROMORPHONE HCL INJ/PF 2 MG/ML AMPULE IV PRN ×8 (02:09→23:40)
[2018-05-21] MEDS: CEFAZOLIN 2 GM/D5W RTU 2 GM/50 ML RTUPB IV SCH ×3 (05:18→22:29)
[2018-05-21] MEDS: HEPARIN SOD (PORCINE) 5,000 UNIT/ML 1 ML SYRINGE SUBCUT SCH ×3 (05:19→22:29)
[2018-05-21 06:04] LABS: ABSOLUTE BASOPHILS # (AUTO) 0.3 10^3/uL (0.0-0.2); ABSOLUTE EOSINOPHILS # (AUTO) 0.2 10^3/uL (0.0-0.6); ABSOLUTE LYMPHOCYTES (AUTO) 2.4 10^3/uL (0.5-4.7); ABSOLUTE MONOCYTES (AUTO) 1.2 10^3/uL (0.1-1.4); BASOPHILS % (AUTO) 1.4 % (0-2); HEMATOCRIT 34.7 % (37.9-51.0); HEMOGLOBIN 11.9 g/dL (13.5-17.0); LYMPHOCYTES % (AUTO) 13.1 % (13-45); MEAN CORPUSCULAR HEMOGLOBIN 30.9 pg (27.0-33.4); MEAN CORPUSCULAR HGB CONC 34.3 g/dL (32.0-36.0); MEAN CORPUSCULAR VOLUME 90 fl (80-97); MONOCYTES % (AUTO) 6.6 % (3-13); PLATELET COUNT 541 10^3/uL (150-450); RED BLOOD COUNT 3.85 10^6/uL (4.35-5.55); RED CELL DISTRIBUTION WIDTH 14.6 % (11.5-14.0); SEGMENTED NEUTROPHILS % (AUTO) 77.9 % (42-78); TOTAL CELLS COUNTED % (AUTO) 100 %
[2018-05-21 06:24] LABS: ALANINE AMINOTRANSFERASE 51 U/L (21-72); ALBUMIN 2.7 g/dL (3.5-5.0); ALKALINE PHOSPHATASE 91 U/L (38-126); ANION GAP 10 (5-19); ASPARTATE AMINO TRANSFERASE 29 U/L (17-59); BILIRUBIN,DIRECT 0.2 mg/dL (0.0-0.4); BILIRUBIN,TOTAL 0.2 mg/dL (0.2-1.3); BLOOD UREA NITROGEN 18 mg/dL (7-20); CALCIUM 8.4 mg/dL (8.4-10.2); CARBON DIOXIDE 25 mmol/L (22-30); CHLORIDE 102 mmol/L (98-107); GLUCOSE 90 mg/dL (75-110); POTASSIUM 4.6 mmol/L (3.6-5.0); SODIUM 137.2 mmol/L (137-145); TOTAL PROTEIN 5.8 g/dL (6.3-8.2)
--- NOTE | 2018-05-21 08:32 | PDOC PROGRESS REPORT ---
Subjective Progress Note for:: 05/21/18 Subjective:: Patient lying in bed comfortably. No issues overnight. Does complain of pain in his right shoulder otherwise denies changes. Denies fever chills or sweats. Reason For Visit: SPIDER BITE Physical Exam Vital Signs: Temp Pulse Resp BP Pulse Ox 98.3 F 82 16 132/72 H 100 05/20/18 23:09 05/20/18 23:09 05/20/18 23:09 05/20/18 23:09 05/20/18 23:09 Intake & Output 05/20/18 05/21/18 05/22/18 06:59 06:59 06:59 Intake Total 2390 4841 Output Total 750 Balance 2390 4091 Weight 97.1 kg 97.3 kg Musculoskeletal exam: PRESENT: other - Right shoulder: Dressing clean/dry/ intact no erythema or drainage. Full elbow, wrist and hand range of motion. No sensory deficits. Results Laboratory Results: 05/21/18 05:05 05/21/18 05:05 05/21/18 05/21/18 05:05 05:05 WBC 18.0 H RBC 3.85 L Hgb 11.9 L Hct 34.7 L MCV 90 MCH 30.9 MCHC 34.3 RDW 14.6 H Plt Count 541 H Seg Neutrophils % 77.9 Lymphocytes % 13.1 Monocytes % 6.6 Eosinophils % 1.0 Basophils % 1.4 Absolute Neutrophils 14.0 H Absolute Lymphocytes 2.4 Absolute Monocytes 1.2 Absolute Eosinophils 0.2 Absolute Basophils 0.3 H Sodium 137.2 Potassium 4.6 Chloride 102 Carbon Dioxide 25 Anion Gap 10 BUN 18 Creatinine 0.70 Est GFR ( Amer) > 60 Est GFR (Non-Af Amer) > 60 Glucose 90 Calcium 8.4 Total Bilirubin 0.2 AST 29 ALT 51 Alkaline Phosphatase 91 Total Protein 5.8 L Albumin 2.7 L Impressions: Shoulder X-Ray 05/15/18 01:55 IMPRESSION: Widening of the acromioclavicular joint concerning for AC separation with nondisplaced fracture of the distal clavicle. Associated soft tissue swelling. 2010 [employer]- All Rights Reserved Upper Extremity CT 05/15/18 02:51 IMPRESSION: Cellulitis and myositis of the right supraclavicular region with cortical irregularity of the distal clavicle/AC joint. No discrete or defined abscess or enhancing abnormality. Findings of the AC joint may in part relate to degenerative change. However, an infectious process would be difficult to exclude entirely given the degree of soft tissue edema and inflammation.. TECHNICAL DOCUMENTATION: Quality ID # 436: Final reports with documentation of one or more dose reduction techniques (e.g., Automated exposure control, adjustment of the mA and/or kV according to patient size, use of iterative reconstruction technique) 2010 [employer]- All Rights Reserved Upper Extremity MRI 05/17/18 10:29 IMPRESSION: 1. Diffuse myositis predominantly involving the trapezius and deltoid musculature, with multiple nonenhancing areas within the trapezius muscle. Given the patient's reported history of spider bite and self-induced trauma to the region, findings are highly concerning for pyomyositis (bacterial myositis) and myonecrosis. 2. Erosive changes surrounding the AC joint with a large joint effusion, which is concerning for septic joint and superimposed osteomyelitis. Emergent findings were discussed with Nurse Mcintosh at 2117 on 05/17/2018. Findings will be relayed to the surgical team for follow-up. Assessment & Plan - Diagnosis (1) Osteomyelitis of shoulder, right Qualifiers: Osteomyelitis type: acute hematogenous Qualified Code(s): M86.011 - Acute hematogenous osteomyelitis, right shoulder Is this a current diagnosis for this admission?: Yes Plan: Status post irrigation and debridement with distal clavicle excision right shoulder Continue current IV antibiotics. Pending pathology results and cultures patient may require IV antibiotics given his bacteremia with concomitant possible osteomyelitis. After reviewing patient's findings on MRI and hospital course is likely patient had bacteremia which ultimately caused osteomyelitis of his distal clavicle. If cultures and pathology are negative for osteomyelitis he may be discharged on p.o. antibiotics.
[2018-05-21] MEDS: GABAPENTIN 300 MG CAPSULE PO SCH ×2 (10:18→22:29)
[2018-05-21] MEDS: NICOTINE 21 MG/24 HR PATCH.TD24 TD SCH (10:18)
--- NOTE | 2018-05-21 10:43 | PDOC PROGRESS REPORT ---
Subjective Progress Note for:: 05/21/18 Subjective:: JOSE MARTINES is a 37 year old male with past medical history of a spider bite 3 years ago. 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 Presented to ED after a spider bite. He stated that while sleeping around 10 PM of sudden pain in his right shoulder , woke up and went to the bathroom and noticed 2 small dots over his lateral shoulder, he went to his bathroom and cut the piece of his skin out with a razor and squeezed the lesion and he states that some pus came out. He noticed that he was having intense burning sensation associated with rapidly expanding erythema and edema extending to his right neck and right upper chest with excruciating right shoulder pain and tenderness to very light palpation. Denies fever, chills, nausea, vomiting, dizziness, lightheadedness, shortness of breath, chest pain, cough, wheezing, abdominal pains, changes on his urine or bowel movements. In the ED right shoulder x-ray showed thinning of AC concerning for AC separation with nondisplaced fracture of the distal clavicle with associated soft tissue swelling. All of CT showed right shoulder cellulitis and myelitis and right supraclavicular region with cortical irregularity of the distal clavicle and AC joint. No collection or abscess were noted. Patient was admitted patient for management of his pain and was started on IV vancomycin and Zosyn. Ortho was consulted and recommendation was to monitor patient and if pain does not improve to do a follow-up MRI of the right shoulder. 05/16/2018. No acute events overnight. Patient is resting in his bed complaining that he has not been able to sleep all night due to persistent right shoulder pain. States that he has had another spider bite 3 years ago and he had similar pain and his pain was managed by Dilaudid. He denies any fever, chills, nausea, vomiting, diarrhea, constipation or any urinary symptoms. 05/17/2018. No acute events overnight. Patient's right shoulder pain is better controlled with increasing his Dilaudid frequency however right shoulder is extremely exquisitely tender to palpation and the swelling and range of motion has not improved. Patient denies any fever, chills, nausea, vomiting , diarrhea, constipation or any urinary symptoms. 05/18/2018. Patient is still having persistent right upper extremity pain with limited range of motion which is controlled with IV narcotics. He had an MRI of right upper extremity yesterday. Patient is ambulatory and p.o. tolerant denies any fever, chills, nausea, vomiting, diarrhea or any constipation. 05/19/2018. He still has persistent right upper extremity pain, swelling however his range of motion is improving slightly. He is p.o. tolerant and ambulatory very pleasant and cooperative with physical examination. He denies any fever, shortness of breath, chest pain, chills, nausea, vomiting, diarrhea or any abdominal pain. 05/20/2018. Patient has moderate improvement in his pain and range of motion of the right upper extremity. Pain is better managed. Has not had any fever chills nausea vomiting diarrhea constipation overnight. Patient is scheduled to have I&D of the AC joint with possible clavicle resection. 05/21/2018. Status post I&D with distal clavicle excision of the right shoulder. Patient has been having persistent pain managed with Dilaudid, patient is ambulatory and p.o. tolerant. Stating that his range of motion has improved. Denies any fever, chills, nausea, vomiting, diarrhea, constipation or any urinary symptoms. Reason For Visit: SPIDER BITE Physical Exam Vital Signs: Temp Pulse Resp BP Pulse Ox 98.4 F 81 16 133/82 H 98 05/21/18 08:38 05/21/18 08:38 05/21/18 08:38 05/21/18 08:38 05/21/18 08:38 Intake & Output 05/20/18 05/21/18 05/22/18 06:59 06:59 06:59 Intake Total 2390 4841 Output Total 750 Balance 2390 4091 Weight 97.1 kg 97.3 kg General appearance: PRESENT: well-developed, well-nourished Respiratory exam: PRESENT: clear to auscultation sally. ABSENT: rales, rhonchi, wheezes Cardiovascular exam: PRESENT: RRR. ABSENT: diastolic murmur, rubs, systolic murmur GI/Abdominal exam: PRESENT: normal bowel sounds, soft. ABSENT: distended, guarding, mass, organolmegaly, rebound, tenderness Musculoskeletal exam: PRESENT: other - Right deltoid and trapezius persistent swelling and tenderness with mild improvement. Right shoulder joint range of motion improving. Neurovascularly intact distally. Results Laboratory Results: 05/21/18 05:05 05/21/18 05:05 05/21/18 05/21/18 05:05 05:05 WBC 18.0 H RBC 3.85 L Hgb 11.9 L Hct 34.7 L MCV 90 MCH 30.9 MCHC 34.3 RDW 14.6 H Plt Count 541 H Seg Neutrophils % 77.9 Lymphocytes % 13.1 Monocytes % 6.6 Eosinophils % 1.0 Basophils % 1.4 Absolute Neutrophils 14.0 H Absolute Lymphocytes 2.4 Absolute Monocytes 1.2 Absolute Eosinophils 0.2 Absolute Basophils 0.3 H Sodium 137.2 Potassium 4.6 Chloride 102 Carbon Dioxide 25 Anion Gap 10 BUN 18 Creatinine 0.70 Est GFR ( Amer) > 60 Est GFR (Non-Af Amer) > 60 Glucose 90 Calcium 8.4 Total Bilirubin 0.2 AST 29 ALT 51 Alkaline Phosphatase 91 Total Protein 5.8 L Albumin 2.7 L Impressions: Shoulder X-Ray 05/15/18 01:55 IMPRESSION: Widening of the acromioclavicular joint concerning for AC separation with nondisplaced fracture of the distal clavicle. Associated soft tissue swelling. 2010 [employer]- All Rights Reserved Upper Extremity CT 05/15/18 02:51 IMPRESSION: Cellulitis and myositis of the right supraclavicular region with cortical irregularity of the distal clavicle/AC joint. No discrete or defined abscess or enhancing abnormality. Findings of the AC joint may in part relate to degenerative change. However, an infectious process would be difficult to exclude entirely given the degree of soft tissue edema and inflammation.. TECHNICAL DOCUMENTATION: Quality ID # 436: Final reports with documentation of one or more dose reduction techniques (e.g., Automated exposure control, adjustment of the mA and/or kV according to patient size, use of iterative reconstruction technique) 2010 [employer]- All Rights Reserved Upper Extremity MRI 05/17/18 10:29 IMPRESSION: 1. Diffuse myositis predominantly involving the trapezius and deltoid musculature, with multiple nonenhancing areas within the trapezius muscle. Given the patient's reported history of spider bite and self-induced trauma to the region, findings are highly concerning for pyomyositis (bacterial myositis) and myonecrosis. 2. Erosive changes surrounding the AC joint with a large joint effusion, which is concerning for septic joint and superimposed osteomyelitis. Emergent findings were discussed with Nurse Mcintosh at 2117 on 05/17/2018. Findings will be relayed to the surgical team for follow-up. Assessment & Plan - Diagnosis (1) Osteomyelitis of shoulder, right Qualifiers: Osteomyelitis type: acute hematogenous Qualified Code(s): M86.011 - Acute hematogenous osteomyelitis, right shoulder Is this a current diagnosis for this admission?: Yes Plan: Likely due to bacteremia or direct inoculation from manipulation of the spider bite by the patient. Status post I&D and distal clavicle excision. Pending cultures. Blood culture positive for MSSA. Patient currently on cefazolin as per ID recommendation. (2) Spider bite Qualifiers: Encounter type: initial encounter Is this a current diagnosis for this admission?: Yes Plan: Unknown a spider. Continue supportive measures. Mild improvement of swelling. Erythema resolved. Tenderness palpation over deltoid and trapezius. Noted range of motion however improving since admission. Intact neurovascularly. Status post right upper extremity MRI on 05/17/2018. Concern for diffuse myositis/myonecrosis/osteomyelitis. Blood culture growing gram-positive cocci in clusters MSSA. Patient is growing gram-positive cocci 2 out of 2. Day 5 of IV vancomycin and Zosyn. Vanco and Zosyn DC'd and switched with cefazolin as per ID recommendation. Day 3 of IV cefazolin. Status post I&D and distal clavicular resection on 05/20/2018. Cultures from 05/15/2018 + for MSSA. Patient switched to Vanco and Zosyn to cefazolin as per ID recommendation. Follow-up wound cultures. (3) Cellulitis Qualifiers: Site of cellulitis: unspecified site Qualified Code(s): L03.90 - Cellulitis , unspecified Is this a current diagnosis for this admission?: Yes Plan: As per problem #2 (4) Myositis Qualifiers: Myositis type: unspecified type Myositis location: unspecified site Qualified Code(s): M60.9 - Myositis, unspecified Is this a current diagnosis for this admission?: Yes Plan: As per problem #2. (5) Tobacco abuse Is this a current diagnosis for this admission?: Yes Plan: Counseled on quitting. Continue nicotine patch. (6) Right shoulder pain Qualifiers: Chronicity: acute Qualified Code(s): M25.511 - Pain in right shoulder Is this a current diagnosis for this admission?: Yes Plan: Per problem #1 (7) Gram-positive bacteremia Is this a current diagnosis for this admission?: Yes Plan: Likely secondary to complication of a spider bite caused by manipulation of the wound by patient. Blood culture from 07/15/2017. Positive 2/2 MSSA. Received 4 days of IV Vanco and Zosyn. Switch to cefazolin on 05/19/2018 as per ID recommendation. Day 5 of IV antibiotics. Pending 2D echo and MRI lumbar thoracic spine to rule out any spinal epidural abscesses.
[2018-05-21] MEDS: NORMAL SALINE 1000 ML 1,000 ML IV PRN ×2 (11:24→22:31)
[2018-05-21] MEDS: TEMAZEPAM 15 MG CAPSULE PO PRN (23:47)
[2018-05-22] MEDS: HYDROMORPHONE HCL INJ/PF 2 MG/ML AMPULE IV PRN ×3 (02:49→08:55)
[2018-05-22] MEDS: HEPARIN SOD (PORCINE) 5,000 UNIT/ML 1 ML SYRINGE SUBCUT SCH ×4 (05:13→21:35)
[2018-05-22 05:43] LABS: ABSOLUTE BASOPHILS # (AUTO) 0.1 10^3/uL (0.0-0.2); ABSOLUTE EOSINOPHILS # (AUTO) 0.2 10^3/uL (0.0-0.6); ABSOLUTE LYMPHOCYTES (AUTO) 2.4 10^3/uL (0.5-4.7); BASOPHILS % (AUTO) 0.7 % (0-2); EOSINOPHILS % (AUTO) 1.5 % (0-6); HEMATOCRIT 34.1 % (37.9-51.0); HEMOGLOBIN 11.8 g/dL (13.5-17.0); LYMPHOCYTES % (AUTO) 19.2 % (13-45); MEAN CORPUSCULAR HEMOGLOBIN 31.1 pg (27.0-33.4); MEAN CORPUSCULAR HGB CONC 34.5 g/dL (32.0-36.0); MEAN CORPUSCULAR VOLUME 90 fl (80-97); MONOCYTES % (AUTO) 8.2 % (3-13); PLATELET COUNT 467 10^3/uL (150-450); RED BLOOD COUNT 3.78 10^6/uL (4.35-5.55); RED CELL DISTRIBUTION WIDTH 14.3 % (11.5-14.0); SEGMENTED NEUTROPHILS % (AUTO) 70.4 % (42-78); TOTAL CELLS COUNTED % (AUTO) 100 %; WHITE BLOOD COUNT 12.7 10^3/uL (4.0-10.5)
[2018-05-22 05:45] LABS: ALANINE AMINOTRANSFERASE 47 U/L (21-72); ALBUMIN 2.8 g/dL (3.5-5.0); ALKALINE PHOSPHATASE 85 U/L (38-126); ANION GAP 11 (5-19); ASPARTATE AMINO TRANSFERASE 25 U/L (17-59); BILIRUBIN,DIRECT 0.1 mg/dL (0.0-0.4); BILIRUBIN,TOTAL 0.2 mg/dL (0.2-1.3); BLOOD UREA NITROGEN 12 mg/dL (7-20); CALCIUM 8.8 mg/dL (8.4-10.2); CARBON DIOXIDE 27 mmol/L (22-30); CHLORIDE 102 mmol/L (98-107); GLUCOSE 84 mg/dL (75-110); TOTAL PROTEIN 5.7 g/dL (6.3-8.2)
[2018-05-22 05:46] LABS: POTASSIUM 4.9 mmol/L (3.6-5.0)
[2018-05-22] MEDS: CEFAZOLIN 2 GM/D5W RTU 2 GM/50 ML RTUPB IV SCH ×3 (05:56→21:35)
--- NOTE | 2018-05-22 08:09 | PDOC PROGRESS REPORT ---
Subjective Progress Note for:: 05/22/18 Subjective:: Patient lying in bed comfortably. No issues overnight. Patient states his pain and range of motion have notably improved. Has been working on range of motion since operative treatment. Denies fever chills or sweats. Reason For Visit: SPIDER BITE Physical Exam Vital Signs: Temp Pulse Resp BP Pulse Ox 99.2 F 81 13 137/74 H 100 05/22/18 00:00 05/22/18 00:00 05/22/18 00:00 05/22/18 00:00 05/22/18 00:00 Intake & Output 05/21/18 05/22/18 05/23/18 06:59 06:59 06:59 Intake Total 4841 3340 Output Total 750 Balance 4091 3340 Weight 97.3 kg 96.9 kg Musculoskeletal exam: PRESENT: other - Right upper extremity: Small amount of serosanguineous drainage on the proximal aspect of the dressing no erythema. Mild tenderness on the distal clavicle. Mild tenderness along the trapezius and deltoid however improved. Range of motion forward flexion/abduction 90 degrees external rotation 60 degrees. Results Laboratory Results: 05/22/18 04:45 05/22/18 04:45 05/22/18 05/22/18 04:45 04:45 WBC 12.7 H RBC 3.78 L Hgb 11.8 L Hct 34.1 L MCV 90 MCH 31.1 MCHC 34.5 RDW 14.3 H Plt Count 467 H Seg Neutrophils % 70.4 Lymphocytes % 19.2 Monocytes % 8.2 Eosinophils % 1.5 Basophils % 0.7 Absolute Neutrophils 9.0 H Absolute Lymphocytes 2.4 Absolute Monocytes 1.0 Absolute Eosinophils 0.2 Absolute Basophils 0.1 Sodium 140.0 Potassium 4.9 Chloride 102 Carbon Dioxide 27 Anion Gap 11 BUN 12 Creatinine 0.67 Est GFR ( Amer) > 60 Est GFR (Non-Af Amer) > 60 Glucose 84 Calcium 8.8 Total Bilirubin 0.2 AST 25 ALT 47 Alkaline Phosphatase 85 Total Protein 5.7 L Albumin 2.8 L 05/16/18 18:38 Blood Blood Culture - Final NO GROWTH IN 5 DAYS 05/16/18 14:37 Blood Blood Culture - Final NO GROWTH IN 5 DAYS Impressions: Shoulder X-Ray 05/15/18 01:55 IMPRESSION: Widening of the acromioclavicular joint concerning for AC separation with nondisplaced fracture of the distal clavicle. Associated soft tissue swelling. 2010 [email or web address]- All Rights Reserved Upper Extremity CT 05/15/18 02:51 IMPRESSION: Cellulitis and myositis of the right supraclavicular region with cortical irregularity of the distal clavicle/AC joint. No discrete or defined abscess or enhancing abnormality. Findings of the AC joint may in part relate to degenerative change. However, an infectious process would be difficult to exclude entirely given the degree of soft tissue edema and inflammation.. TECHNICAL DOCUMENTATION: Quality ID # 436: Final reports with documentation of one or more dose reduction techniques (e.g., Automated exposure control, adjustment of the mA and/or kV according to patient size, use of iterative reconstruction technique) 2010 [email or web address]- All Rights Reserved Upper Extremity MRI 05/17/18 10:29 IMPRESSION: 1. Diffuse myositis predominantly involving the trapezius and deltoid musculature, with multiple nonenhancing areas within the trapezius muscle. Given the patient's reported history of spider bite and self-induced trauma to the region, findings are highly concerning for pyomyositis (bacterial myositis) and myonecrosis. 2. Erosive changes surrounding the AC joint with a large joint effusion, which is concerning for septic joint and superimposed osteomyelitis. Emergent findings were discussed with Nurse Mcintosh at 2117 on 05/17/2018. Findings will be relayed to the surgical team for follow-up. Assessment & Plan - Diagnosis (1) Osteomyelitis of shoulder, right Qualifiers: Osteomyelitis type: acute hematogenous Qualified Code(s): M86.011 - Acute hematogenous osteomyelitis, right shoulder Is this a current diagnosis for this admission?: Yes Plan: Status post irrigation and debridement with distal clavicle excision right shoulder Continue current IV antibiotics. Cultures demonstrate gram-positive cocci likely consistent with patient's previous bacteremia. Continue IV antibiotics at this juncture. Patient may be discharged home on Wednesday or Wednesday if cultures are finalized with antibiotics as per ID recommendations. Have encouraged the patient to continue active and passive range of motion.
[2018-05-22] MEDS: GABAPENTIN 300 MG CAPSULE PO SCH ×2 (10:35→21:35)
[2018-05-22] MEDS: NICOTINE 21 MG/24 HR PATCH.TD24 TD SCH (10:37)
[2018-05-22] MEDS ORDERED: HYDROMORPHONE HCL INJ/PF 2 MG/ML AMPULE IV ONE ×2 (12:06→15:10)
[2018-05-22] MEDS ORDERED: LORAZEPAM INJ 2 MG/1 ML VIAL IV ONE ×2 (12:06→15:10)
[2018-05-22] MEDS: OXYCODONE-ACETAMINOPHEN 5-325 MG TABLET PO PRN ×3 (12:36→20:32)
--- NOTE | 2018-05-22 13:35 | XCELERA REPORT ---
[address] [address] Transthoracic Echocardiogram Report Name: JOSE MARTINES Age: 37 yrs Gender: Male : 1980 Patient Status: In[facility] Study Date: 05/21/2018 07:15 PM Height: 72 in Weight: 214 lb BSA: 2.2 m2 Procedure: A two-dimensional transthoracic echocardiogram with color flow and Doppler was performed. Study Quality: Fair. Reason For Study: Rule out endocarditis History: ENDOCARDITIS. Ordering Physician: ANNA JIMENEZ Performed By: Beatrice Warner Interpretation Summary No gross vegetatations seen.RECOMMEND BINA IF CLINCAL SUSPICION IS HIGH. The left ventricle is normal in size. There is normal left ventricular wall thickness. LV EF is 65% Left ventricular systolic function is normal. Doppler measurements suggest normal left ventricular diastolic function The left ventricular wall motion is normal. There is no thrombus. The right ventricle is grossly normal size. The right atrium is normal. The left atrial size is normal. There is no evidence of mitral valve prolapse. There is no mitral valve stenosis. There is no mitral regurgitation noted. There is no aortic valve stenosis No aortic regurgitation is present. There is no tricuspid stenosis. There is a trace amount of tricuspid regurgitation There is mild pulmonary hypertension by echo RVSP IS 41 TO 46 MM OF hG , WITH ra MEAN OF 5 TO10. There is no pericardial effusion. No gross vegetatations seen.RECOMMEND BINA IF CLINCAL SUSPICION IS HIGH. MMode/2D Measurements & Calculations RVDd: 3.5 cm LVIDd: 5.5 cm FS: 20.6 % LA dimension: 3.8 cm IVSd: 0.00 cm LVIDs: 4.4 cm EDV(Teich): 149.0 ml LVPWd: 0.88 cm ESV(Teich): 87.1 ml EF(Teich): 41.6 % Doppler Measurements & Calculations MV E max pippa: MV P1/2t max pippa: Ao V2 max: LV V1 max P.1 cm/sec 119.4 cm/sec 206.3 cm/sec 8.5 mmHg MV A max pippa: MV P1/2t: 48.5 msec Ao max PG: LV V1 max: 84.9 cm/sec MVA(P1/2t): 4.5 cm2 17.0 mmHg 146.1 cm/sec MV E/A: 1.2 MV dec slope: 720.7 cm/sec2 MV dec time: 0.17 sec PA V2 max: TR max pippa: MV P1/2t-pr_phl: 149.3 cm/sec 300.0 cm/sec 48.5 msec PA max P.9 mmHgTR max P.0 mmHg Left Ventricle The left ventricle is normal in size. There is normal left ventricular wall thickness. LV EF is 65%. Left ventricular systolic function is normal. Doppler measurements suggest normal left ventricular diastolic function. The left ventricular wall motion is normal. There is no thrombus. Right Ventricle The right ventricle is grossly normal size. The right ventricle is not well visualized secondary to technical limitations. Atria The right atrium is normal. The left atrial size is normal. Mitral Valve There is no evidence of mitral valve prolapse. There is no vegetation seen on the mitral valve. There is no mitral valve stenosis. There is no mitral regurgitation noted. Aortic Valve There is no aortic valvular vegetation. There is no aortic valve stenosis. There is no LVOT obstruction. No aortic regurgitation is present. Tricuspid Valve There is no tricuspid stenosis. There is a trace amount of tricuspid regurgitation. There is mild pulmonary hypertension by echo. RVSP IS 41 TO 46 MM OF hG , WITH ra MEAN OF 5 TO10. Pulmonic Valve There is no pulmonic valvular stenosis. There is no pulmonic valvular regurgitation. Great Vessels The aortic root is not well visualized but is probably normal size. Effusions There is no pericardial effusion. : ANNA JIMENEZ > Johana Mckay
--- NOTE | 2018-05-22 14:50 | PDOC PROGRESS REPORT ---
Subjective Progress Note for:: 05/22/18 Subjective:: JOSE MARTINES is a 37 year old male with past medical history of a spider bite 3 years ago. 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 Presented to ED after a spider bite. He stated that while sleeping around 10 PM of sudden pain in his right shoulder , woke up and went to the bathroom and noticed 2 small dots over his lateral shoulder, he went to his bathroom and cut the piece of his skin out with a razor and squeezed the lesion and he states that some pus came out. He noticed that he was having intense burning sensation associated with rapidly expanding erythema and edema extending to his right neck and right upper chest with excruciating right shoulder pain and tenderness to very light palpation. Denies fever, chills, nausea, vomiting, dizziness, lightheadedness, shortness of breath, chest pain, cough, wheezing, abdominal pains, changes on his urine or bowel movements. In the ED right shoulder x-ray showed thinning of AC concerning for AC separation with nondisplaced fracture of the distal clavicle with associated soft tissue swelling. All of CT showed right shoulder cellulitis and myelitis and right supraclavicular region with cortical irregularity of the distal clavicle and AC joint. No collection or abscess were noted. Patient was admitted patient for management of his pain and was started on IV vancomycin and Zosyn. Ortho was consulted and recommendation was to monitor patient and if pain does not improve to do a follow-up MRI of the right shoulder. 05/16/2018. No acute events overnight. Patient is resting in his bed complaining that he has not been able to sleep all night due to persistent right shoulder pain. States that he has had another spider bite 3 years ago and he had similar pain and his pain was managed by Dilaudid. He denies any fever, chills, nausea, vomiting, diarrhea, constipation or any urinary symptoms. 05/17/2018. No acute events overnight. Patient's right shoulder pain is better controlled with increasing his Dilaudid frequency however right shoulder is extremely exquisitely tender to palpation and the swelling and range of motion has not improved. Patient denies any fever, chills, nausea, vomiting , diarrhea, constipation or any urinary symptoms. 05/18/2018. Patient is still having persistent right upper extremity pain with limited range of motion which is controlled with IV narcotics. He had an MRI of right upper extremity yesterday. Patient is ambulatory and p.o. tolerant denies any fever, chills, nausea, vomiting, diarrhea or any constipation. 05/19/2018. He still has persistent right upper extremity pain, swelling however his range of motion is improving slightly. He is p.o. tolerant and ambulatory very pleasant and cooperative with physical examination. He denies any fever, shortness of breath, chest pain, chills, nausea, vomiting, diarrhea or any abdominal pain. 05/20/2018. Patient has moderate improvement in his pain and range of motion of the right upper extremity. Pain is better managed. Has not had any fever chills nausea vomiting diarrhea constipation overnight. Patient is scheduled to have I&D of the AC joint with possible clavicle resection. 05/21/2018. Status post I&D with distal clavicle excision of the right shoulder. Patient has been having persistent pain managed with Dilaudid, patient is ambulatory and p.o. tolerant. Stating that his range of motion has improved. Denies any fever, chills, nausea, vomiting, diarrhea, constipation or any urinary symptoms. 05/22/2018. Status post I&D with distal clavicle excision of the right shoulder on 05/20/2018. Patient has significant improvement of his symptoms since the procedure. He is ambulatory, range of motion has improved, and pain is about 4 out of 10. He denies any fever, chills, nausea, vomiting, diarrhea or any constipation. Reason For Visit: SPIDER BITE Physical Exam Vital Signs: Temp Pulse Resp BP Pulse Ox 98.0 F 77 16 135/69 H 98 05/22/18 12:14 05/22/18 12:14 05/22/18 12:14 05/22/18 12:14 05/22/18 12:14 Intake & Output 05/21/18 05/22/18 05/23/18 06:59 06:59 06:59 Intake Total 4841 3340 1812 Output Total 750 Balance 4091 3340 1812 Weight 97.3 kg 96.9 kg General appearance: PRESENT: no acute distress, well-developed, well-nourished Respiratory exam: PRESENT: clear to auscultation sally. ABSENT: rales, rhonchi, wheezes Cardiovascular exam: PRESENT: RRR. ABSENT: diastolic murmur, rubs, systolic murmur GI/Abdominal exam: PRESENT: normal bowel sounds, soft. ABSENT: distended, guarding, mass, organolmegaly, rebound, tenderness Gentrourinary exam: PRESENT: other - Right deltoid and trapezius muscle more much less tender and swelling has also removed improved significantly. Range of motion is also improving. No erythema or active discharge. Results Laboratory Results: 05/22/18 04:45 05/22/18 04:45 05/22/18 05/22/18 04:45 04:45 WBC 12.7 H RBC 3.78 L Hgb 11.8 L Hct 34.1 L MCV 90 MCH 31.1 MCHC 34.5 RDW 14.3 H Plt Count 467 H Seg Neutrophils % 70.4 Lymphocytes % 19.2 Monocytes % 8.2 Eosinophils % 1.5 Basophils % 0.7 Absolute Neutrophils 9.0 H Absolute Lymphocytes 2.4 Absolute Monocytes 1.0 Absolute Eosinophils 0.2 Absolute Basophils 0.1 Sodium 140.0 Potassium 4.9 Chloride 102 Carbon Dioxide 27 Anion Gap 11 BUN 12 Creatinine 0.67 Est GFR ( Amer) > 60 Est GFR (Non-Af Amer) > 60 Glucose 84 Calcium 8.8 Total Bilirubin 0.2 AST 25 ALT 47 Alkaline Phosphatase 85 Total Protein 5.7 L Albumin 2.8 L 05/16/18 18:38 Blood Blood Culture - Final NO GROWTH IN 5 DAYS 05/16/18 14:37 Blood Blood Culture - Final NO GROWTH IN 5 DAYS Impressions: Shoulder X-Ray 05/15/18 01:55 IMPRESSION: Widening of the acromioclavicular joint concerning for AC separation with nondisplaced fracture of the distal clavicle. Associated soft tissue swelling. 2010 [employer]- All Rights Reserved Upper Extremity CT 05/15/18 02:51 IMPRESSION: Cellulitis and myositis of the right supraclavicular region with cortical irregularity of the distal clavicle/AC joint. No discrete or defined abscess or enhancing abnormality. Findings of the AC joint may in part relate to degenerative change. However, an infectious process would be difficult to exclude entirely given the degree of soft tissue edema and inflammation.. TECHNICAL DOCUMENTATION: Quality ID # [id number]: Final reports with documentation of one or more dose reduction techniques (e.g., Automated exposure control, adjustment of the mA and/or kV according to patient size, use of iterative reconstruction technique) 2010 [employer]- All Rights Reserved Upper Extremity MRI 05/17/18 10:29 IMPRESSION: 1. Diffuse myositis predominantly involving the trapezius and deltoid musculature, with multiple nonenhancing areas within the trapezius muscle. Given the patient's reported history of spider bite and self-induced trauma to the region, findings are highly concerning for pyomyositis (bacterial myositis) and myonecrosis. 2. Erosive changes surrounding the AC joint with a large joint effusion, which is concerning for septic joint and superimposed osteomyelitis. Emergent findings were discussed with Nurse Mcintosh at 2117 on 05/17/2018. Findings will be relayed to the surgical team for follow-up. Assessment & Plan - Diagnosis (1) Osteomyelitis of shoulder, right Qualifiers: Osteomyelitis type: acute hematogenous Qualified Code(s): M86.011 - Acute hematogenous osteomyelitis, right shoulder Is this a current diagnosis for this admission?: Yes Plan: Likely due to bacteremia or direct inoculation from manipulation of the spider bite by the patient. Status post I&D and distal clavicle excision. Wound culture from 05/20/2018+ for gram-positive cocci likely MSSA. Blood culture positive for MSSA. Patient currently on cefazolin as per ID recommendation. Will decide discharge antibiotic based on this culture result either Wednesday or Wednesday. Please follow-up ID recommendation. (2) Spider bite Qualifiers: Encounter type: initial encounter Is this a current diagnosis for this admission?: Yes Plan: Unknown a spider. Continue supportive measures. Mild improvement of swelling. Erythema resolved. Tenderness palpation over deltoid and trapezius. Noted range of motion however improving since admission. Intact neurovascularly. Status post right upper extremity MRI on 05/17/2018. Concern for diffuse myositis/myonecrosis/osteomyelitis. Blood culture growing gram-positive cocci in clusters MSSA. Patient is growing gram-positive cocci 2 out of 2. Day 5 of IV vancomycin and Zosyn. Vanco and Zosyn DC'd and switched with cefazolin as per ID recommendation. Day 3 of IV cefazolin. Status post I&D and distal clavicular resection on 05/20/2018. Cultures from 05/15/2018 + for MSSA. Patient switched to Vanco and Zosyn to cefazolin as per ID recommendation. Follow-up wound cultures. (3) Cellulitis Qualifiers: Site of cellulitis: unspecified site Qualified Code(s): L03.90 - Cellulitis , unspecified Is this a current diagnosis for this admission?: Yes Plan: As per problem #2 (4) Myositis Qualifiers: Myositis type: unspecified type Myositis location: unspecified site Qualified Code(s): M60.9 - Myositis, unspecified Is this a current diagnosis for this admission?: Yes Plan: As per problem #2. (5) Tobacco abuse Is this a current diagnosis for this admission?: Yes Plan: Counseled on quitting. Continue nicotine patch. (6) Right shoulder pain Qualifiers: Chronicity: acute Qualified Code(s): M25.511 - Pain in right shoulder Is this a current diagnosis for this admission?: Yes Plan: Per problem #1 De-escalate IV narcotics. Still wished to p.o. wean as possible. (7) Gram-positive bacteremia Is this a current diagnosis for this admission?: Yes Plan: Likely secondary to complication of a spider bite caused by manipulation of the wound by patient. Blood culture from 07/15/2017. Positive 2/2 MSSA. Received 6 days of IV Vanco and Zosyn. Switch to cefazolin on 05/19/2018 as per ID recommendation. Day 6 of IV antibiotics. Pending 2D echo. Patient cannot do his MRI due to claustrophobia history. Will give 1 dose of benzos and will reattempt today. Please follow ID recommendation on discharge antibiotic ointment when ready for discharge.
--- NOTE | 2018-05-22 16:46 | RADIOLOGY REPORT (SQ) ---
EXAM DESCRIPTION: MRI THORACIC SPINE WITHOUT COMPLETED DATE/TIME: 05/22/2018 4:07 pm REASON FOR STUDY: Rule out a spinal epidural abscess COMPARISON: None. TECHNIQUE: Sagittal and Axial imaging includes T1, T2, STIR and gradient echo sequences. LIMITATIONS: None. FINDINGS: LOCALIZER: No worrisome findings. ALIGNMENT: Normal. VERTEBRAE: Intact. BONE MARROW: Normal. No marrow replacement or reactive changes. HARDWARE: None in the spine. CORD: Normal in size and signal intensity. SOFT TISSUES: No soft tissue masses. THORACIC DISCS T1-T12: No significant spinal stenosis or exit foraminal stenosis. LOWER CERVICAL: Incompletely imaged. No significant spinal stenosis or exit foraminal stenosis. UPPER LUMBAR: Incompletely imaged. No significant spinal stenosis or exit foraminal stenosis. OTHER: No other significant finding. IMPRESSION: UNREMARKABLE MRI THORACIC SPINE. NO ABNORMAL EPIDURAL FLUID COLLECTION IDENTIFIED. HOLLY EWHAT LIMITED WITHOUT INTRAVENOUS CONTRAST. TECHNICAL DOCUMENTATION: JOB ID: [id number] [employer]- All Rights Reserved Reading location - IP/workstation name: [email or web address]
--- NOTE | 2018-05-22 16:46 | RADIOLOGY REPORT (SQ) ---
EXAM DESCRIPTION: MRI LUMBAR SPINE WITHOUT COMPLETED DATE/TIME: 05/22/2018 4:07 pm REASON FOR STUDY: Rule out a spinal epidural abscess COMPARISON: None. TECHNIQUE: Sagittal and Axial imaging includes T1, T2, STIR and gradient echo sequences. Coronal T2/ HASTE imaging. LIMITATIONS: None. FINDINGS: VISUALIZED UPPER ABDOMEN: Limited evaluation. No acute or suspicious findings suggested. SEGMENTATION: No transitional anatomy. The lowest well-developed disc space is labeled L5-S1. ALIGNMENT: Anatomic. VERTEBRAE: Intact. BONE MARROW: Normal. No marrow replacement or reactive changes. DISC SIGNAL: Normal. No significant abnormal signal or loss of height. POSTERIOR ELEMENTS: Generally intact. No pars defect evident. HARDWARE: None in the spine. CORD AND CONUS: Normal in size and signal intensity. Conus at the appropriate level. SOFT TISSUES: No aortic aneurysm seen. No bulky retroperitoneal adenopathy or mass. No paraspinal mas s or fluid. L1-L2: Mild diffuse posterior annular disc bulge. No significant spinal stenosis or exit foraminal s tenosis. L2-L3: No significant spinal stenosis or exit foraminal stenosis. L3-L4: No significant spinal stenosis or exit foraminal stenosis. L4-L5: Mild diffuse posterior annular disc bulge. Mild facet arthropathy. No significant spinal timmy nosis. Mild exit foraminal stenosis. L5-S1: Mild diffuse posterior disc bulge. Mild facet arthropathy. No significant spinal stenosis. Mild exit foraminal stenosis. LOWER THORACIC: Incompletely imaged. Mild disc bulge at T12-L1. No stenosis seen. SACRUM: Visualized upper sacrum intact. OTHER: No other significant findings. IMPRESSION: MILD DEGENERATIVE CHANGES DESCRIBED. NO HIGH-GRADE STENOSIS OR IMPINGEMENT. NO EPID URAL FLUID COLLECTIONS IDENTIFIED. SOMEWHAT LIMITED WITHOUT INTRAVENOUS CONTRAST. TECHNICAL DOCUMENTATION: JOB ID: [id number] [employer]- All Rights Reserved Reading location - IP[facility]station name: [email or web address]
[2018-05-22] MEDS: DIPHENHYDRAMINE HCL 50 MG CAPSULE PO PRN (21:35)
[2018-05-23] MEDS: OXYCODONE-ACETAMINOPHEN 5-325 MG TABLET PO PRN ×6 (02:36→23:11)
[2018-05-23 04:46] LABS: HEMATOCRIT 36.8 % (37.9-51.0); HEMOGLOBIN 12.6 g/dL (13.5-17.0); MEAN CORPUSCULAR HGB CONC 34.4 g/dL (32.0-36.0); MEAN CORPUSCULAR VOLUME 90 fl (80-97); PLATELET COUNT 442 10^3/uL (150-450); RED BLOOD COUNT 4.08 10^6/uL (4.35-5.55); RED CELL DISTRIBUTION WIDTH 14.8 % (11.5-14.0); WHITE BLOOD COUNT 13.7 10^3/uL (4.0-10.5)
[2018-05-23 05:01] LABS: ALANINE AMINOTRANSFERASE 44 U/L (21-72); ALBUMIN 3.2 g/dL (3.5-5.0); ALKALINE PHOSPHATASE 98 U/L (38-126); ANION GAP 12 (5-19); ASPARTATE AMINO TRANSFERASE 31 U/L (17-59); BILIRUBIN,DIRECT 0.3 mg/dL (0.0-0.4); BILIRUBIN,TOTAL 0.3 mg/dL (0.2-1.3); BLOOD UREA NITROGEN 18 mg/dL (7-20); CALCIUM 9.2 mg/dL (8.4-10.2); CARBON DIOXIDE 28 mmol/L (22-30); CHLORIDE 102 mmol/L (98-107); GLUCOSE 93 mg/dL (75-110); SODIUM 141.5 mmol/L (137-145); TOTAL PROTEIN 6.8 g/dL (6.3-8.2)
[2018-05-23 05:09] LABS: ABSOLUTE MONOCYTES # (MANUAL) 1.1 10^3/uL (0.1-1.4); ABSOLUTE NEUTROPHILS# (MANUAL) 9.2 10^3/uL (1.7-8.2); BAND NEUTROPHILS % (MANUAL) 2 % (3-5); BASOPHILS % (MANUAL) 0 % (0-2); EOSINOPHILS % (MANUAL) 3 % (0-6); LYMPHOCYTES % (MANUAL) 22 % (13-45); MONOCYTES % (MANUAL) 8 % (3-13); SEGMENTED NEUTROPHILS % (MAN) 65 % (42-78); TOTAL CELLS COUNTED 100
[2018-05-23 05:10] LABS: ANISOCYTOSIS SLIGHT; PLATELET CLUMPS PRESENT; PLATELET COMMENT ADEQUATE; PLATELET LARGE PRESENT; POLYCHROMASIA SLIGHT; TOXIC GRANULATION 1+
[2018-05-23] MEDS: HEPARIN SOD (PORCINE) 5,000 UNIT/ML 1 ML SYRINGE SUBCUT SCH ×3 (05:53→21:46)
[2018-05-23] MEDS: CEFAZOLIN 2 GM/D5W RTU 2 GM/50 ML RTUPB IV SCH ×3 (05:53→21:46)
--- NOTE | 2018-05-23 09:11 | PDOC PROGRESS REPORT ---
Subjective Progress Note for:: 05/23/18 Subjective:: JOSE MARTINES is a 37 year old male with past medical history of a spider bite 3 years ago. 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 Presented to ED after a spider bite. He stated that while sleeping around 10 PM of sudden pain in his right shoulder , woke up and went to the bathroom and noticed 2 small dots over his lateral shoulder, he went to his bathroom and cut the piece of his skin out with a razor and squeezed the lesion and he states that some pus came out. He noticed that he was having intense burning sensation associated with rapidly expanding erythema and edema extending to his right neck and right upper chest with excruciating right shoulder pain and tenderness to very light palpation. Denies fever, chills, nausea, vomiting, dizziness, lightheadedness, shortness of breath, chest pain, cough, wheezing, abdominal pains, changes on his urine or bowel movements. In the ED right shoulder x-ray showed thinning of AC concerning for AC separation with nondisplaced fracture of the distal clavicle with associated soft tissue swelling. All of CT showed right shoulder cellulitis and myelitis and right supraclavicular region with cortical irregularity of the distal clavicle and AC joint. No collection or abscess were noted. Patient was admitted patient for management of his pain and was started on IV vancomycin and Zosyn. Ortho was consulted and recommendation was to monitor patient and if pain does not improve to do a follow-up MRI of the right shoulder. 05/16/2018. No acute events overnight. Patient is resting in his bed complaining that he has not been able to sleep all night due to persistent right shoulder pain. States that he has had another spider bite 3 years ago and he had similar pain and his pain was managed by Dilaudid. He denies any fever, chills, nausea, vomiting, diarrhea, constipation or any urinary symptoms. 05/17/2018. No acute events overnight. Patient's right shoulder pain is better controlled with increasing his Dilaudid frequency however right shoulder is extremely exquisitely tender to palpation and the swelling and range of motion has not improved. Patient denies any fever, chills, nausea, vomiting , diarrhea, constipation or any urinary symptoms. 05/18/2018. Patient is still having persistent right upper extremity pain with limited range of motion which is controlled with IV narcotics. He had an MRI of right upper extremity yesterday. Patient is ambulatory and p.o. tolerant denies any fever, chills, nausea, vomiting, diarrhea or any constipation. 05/19/2018. He still has persistent right upper extremity pain, swelling however his range of motion is improving slightly. He is p.o. tolerant and ambulatory very pleasant and cooperative with physical examination. He denies any fever, shortness of breath, chest pain, chills, nausea, vomiting, diarrhea or any abdominal pain. 05/20/2018. Patient has moderate improvement in his pain and range of motion of the right upper extremity. Pain is better managed. Has not had any fever chills nausea vomiting diarrhea constipation overnight. Patient is scheduled to have I&D of the AC joint with possible clavicle resection. 05/21/2018. Status post I&D with distal clavicle excision of the right shoulder. Patient has been having persistent pain managed with Dilaudid, patient is ambulatory and p.o. tolerant. Stating that his range of motion has improved. Denies any fever, chills, nausea, vomiting, diarrhea, constipation or any urinary symptoms. 05/22/2018. Status post I&D with distal clavicle excision of the right shoulder on 05/20/2018. Patient has significant improvement of his symptoms since the procedure. He is ambulatory, range of motion has improved, and pain is about 4 out of 10. He denies any fever, chills, nausea, vomiting, diarrhea or any constipation. 01/20/2018. No acute events overnight. Patient is off of IV narcotics and is stating that his pain has returned since being switched to oral. His pain is about 5 out of 10. His range of motion has improved and his deltoid and trapezial muscle swelling has also improved. Patient is ambulatory, p.o. tolerant. No fever, chills, nausea, vomiting, diarrhea, constipation. Reason For Visit: SPIDER BITE Physical Exam Vital Signs: Temp Pulse Resp BP Pulse Ox 98.2 F 66 16 131/70 H 98 05/22/18 23:55 05/22/18 23:55 05/22/18 23:55 05/22/18 23:55 05/22/18 23:55 Intake & Output 05/22/18 05/23/18 05/24/18 06:59 06:59 06:59 Intake Total 3340 3505 Balance 3340 3505 Weight 96.9 kg 97.2 kg General appearance: PRESENT: no acute distress, well-developed, well-nourished Respiratory exam: PRESENT: clear to auscultation sally. ABSENT: rales, rhonchi, wheezes Cardiovascular exam: PRESENT: RRR. ABSENT: diastolic murmur, rubs, systolic murmur GI/Abdominal exam: PRESENT: normal bowel sounds, soft. ABSENT: distended, guarding, mass, organolmegaly, rebound, tenderness Extremities exam: PRESENT: other - Right deltoid and trapezius muscle tenderness. Swelling has improved. No sign of active discharge or erythema. Intact neurovascularly distally Results Laboratory Results: 05/23/18 03:56 05/23/18 03:56 05/23/18 05/23/18 03:56 03:56 WBC 13.7 H RBC 4.08 L Hgb 12.6 L Hct 36.8 L MCV 90 MCH 31.0 MCHC 34.4 RDW 14.8 H Plt Count 442 Seg Neutrophils % Not Reportable Lymphocytes % Not Reportable Monocytes % Not Reportable Eosinophils % Not Reportable Basophils % Not Reportable Absolute Neutrophils Not Reportable Absolute Lymphocytes Not Reportable Absolute Monocytes Not Reportable Absolute Eosinophils Not Reportable Absolute Basophils Not Reportable Sodium 141.5 Potassium 5.0 Chloride 102 Carbon Dioxide 28 Anion Gap 12 BUN 18 Creatinine 0.72 Est GFR ( Amer) > 60 Est GFR (Non-Af Amer) > 60 Glucose 93 Calcium 9.2 Total Bilirubin 0.3 AST 31 ALT 44 Alkaline Phosphatase 98 Total Protein 6.8 Albumin 3.2 L 05/20/18 11:12 Biopsy AFB Smear Concentration - Final 05/20/18 11:12 Biopsy Acid Fast Bacilli Smear - Final Impressions: Shoulder X-Ray 05/15/18 01:55 IMPRESSION: Widening of the acromioclavicular joint concerning for AC separation with nondisplaced fracture of the distal clavicle. Associated soft tissue swelling. 2010 [employer]- All Rights Reserved Upper Extremity CT 05/15/18 02:51 IMPRESSION: Cellulitis and myositis of the right supraclavicular region with cortical irregularity of the distal clavicle/AC joint. No discrete or defined abscess or enhancing abnormality. Findings of the AC joint may in part relate to degenerative change. However, an infectious process would be difficult to exclude entirely given the degree of soft tissue edema and inflammation.. TECHNICAL DOCUMENTATION: Quality ID # [id number]: Final reports with documentation of one or more dose reduction techniques (e.g., Automated exposure control, adjustment of the mA and/or kV according to patient size, use of iterative reconstruction technique) 2010 [employer]- All Rights Reserved Upper Extremity MRI 05/17/18 10:29 IMPRESSION: 1. Diffuse myositis predominantly involving the trapezius and deltoid musculature, with multiple nonenhancing areas within the trapezius muscle. Given the patient's reported history of spider bite and self-induced trauma to the region, findings are highly concerning for pyomyositis (bacterial myositis) and myonecrosis. 2. Erosive changes surrounding the AC joint with a large joint effusion, which is concerning for septic joint and superimposed osteomyelitis. Emergent findings were discussed with Nurse Mcintosh at 2117 on 05/17/2018. Findings will be relayed to the surgical team for follow-up. Lumbar Spine MRI 05/22/18 00:00 IMPRESSION: MILD DEGENERATIVE CHANGES DESCRIBED. NO HIGH-GRADE STENOSIS OR IMPINGEMENT. NO EPIDURAL FLUID COLLECTIONS IDENTIFIED. SOMEWHAT LIMITED WITHOUT INTRAVENOUS CONTRAST. Thoracic Spine MRI 05/22/18 00:00 IMPRESSION: UNREMARKABLE MRI THORACIC SPINE. NO ABNORMAL EPIDURAL FLUID COLLECTION IDENTIFIED. SOMEWHAT LIMITED WITHOUT INTRAVENOUS CONTRAST. Assessment & Plan - Diagnosis (1) Osteomyelitis of shoulder, right Qualifiers: Osteomyelitis type: acute hematogenous Qualified Code(s): M86.011 - Acute hematogenous osteomyelitis, right shoulder Is this a current diagnosis for this admission?: Yes Plan: Likely due to bacteremia or direct inoculation from manipulation of the spider bite by the patient. Status post I&D and distal clavicle excision. Wound culture from 07/20/2017 is for gram-positive cocci pending sensitivity Blood culture positive for MSSA. Patient currently on cefazolin as per ID recommendation. Please follow ID recommendation once patient is ready to be discharged home. He needs to be on prolonged IV antibiotics as per ID recommendation which necessitates a PICC line placement before discharge. Wound cultures positive for gram-positive cocci pending sensitivity. Please follow-up ID recommendation. (2) Spider bite Qualifiers: Encounter type: initial encounter Is this a current diagnosis for this admission?: Yes Plan: Unknown a spider. Continue supportive measures. Mild improvement of swelling. Erythema resolved. Tenderness palpation over deltoid and trapezius. Noted range of motion however improving since admission. Intact neurovascularly. Status post right upper extremity MRI on 05/17/2018. Concern for diffuse myositis/myonecrosis/osteomyelitis. Blood culture growing gram-positive cocci in clusters MSSA. Patient is growing gram-positive cocci 2 out of 2. Received 5 days of IV Zosyn and Vanco. Day 8 of total IV antibiotic Vanco and Zosyn DC'd and switched with cefazolin as per ID recommendation. Day 4 of IV cefazolin. Status post I&D and distal clavicular resection on 05/20/2018. Cultures from 05/15/2018 + for MSSA. Patient switched to Vanco and Zosyn to cefazolin as per ID recommendation. Follow-up wound cultures. (3) Cellulitis Qualifiers: Site of cellulitis: unspecified site Qualified Code(s): L03.90 - Cellulitis , unspecified Is this a current diagnosis for this admission?: Yes Plan: As per problem #2 (4) Myositis Qualifiers: Myositis type: unspecified type Myositis location: unspecified site Qualified Code(s): M60.9 - Myositis, unspecified Is this a current diagnosis for this admission?: Yes Plan: As per problem #2. (5) Tobacco abuse Is this a current diagnosis for this admission?: Yes Plan: Counseled on quitting. Continue nicotine patch. (6) Right shoulder pain Qualifiers: Chronicity: acute Qualified Code(s): M25.511 - Pain in right shoulder Is this a current diagnosis for this admission?: Yes Plan: Per problem #1 De-escalate IV narcotics. Still wished to p.o. wean as possible. (7) Gram-positive bacteremia Is this a current diagnosis for this admission?: Yes Plan: Likely secondary to complication of a spider bite caused by manipulation of the wound by patient. Blood culture from 07/15/2017. Positive 2/2 MSSA. Received 8 days of IV Vanco and Zosyn. Switched to cefazolin on 05/19/2018 as per ID recommendation. Day 8 of IV antibiotics. 2D echo negative for any endocarditis. MRI thoracic and lumbar spine negative for any spinal epidural abscess. Please follow ID recommendation before discharging patient. Needs prolonged IV antibiotic for his bacteremia.
[2018-05-23] MEDS: GABAPENTIN 300 MG CAPSULE PO SCH ×2 (09:19→21:46)
[2018-05-23] MEDS: NICOTINE 21 MG/24 HR PATCH.TD24 TD SCH (09:22)
[2018-05-23] MEDS ORDERED: MORPHINE SULFATE 10 MG/ML INJ IV ONE (09:30)
[2018-05-23] MEDS: TRAMADOL HCL 50 MG TABLET PO PRN ×3 (09:51→21:45)
--- NOTE | 2018-05-23 18:27 | Progress Note ---
Provider Note Provider Note: ID Consult Note - Follow Up Asked to review patient's chart by Dr Bowles; case discussed briefly via telephone. Reviewed patient's chart. Pt not seen or examined. Mr. Brannon is admitted with MSSA bacteremia from R shoulder myositis and distal clavicle osteomyelitis, AC joint septic arthritis. He underwent operative debridement, at which time distal clavicle was appreciated as soft, further exploration did not reveal purulent material or abscess in the surrouding trapezius. ROM improved after operative treatment. Surgical specimens have yielded growth of MSSA. Blood culture from 05/16 was finalized as negative. TTE did not reveal any gross vegetations. MRI w/o contrast thoracic and lumbar spine were negative for any evidence of infectious spondylitis or epidural abscess. Per discussion with Dr Bowles, pt has no payor source, remains self-pay, and may require a once daily IV medication to complete treatment due to financial limitations. Impression/Recommendations MSSA bacteremia secondary to R shoulder clavicular osteomyelitis, myositis and cellulitis - Pt has no evidence of other deep seated or metastatic sites of infection, including no evidence of endocarditis (no murmur documented on exam, persistent bacteremia or findings on TTE); he has had source control with surgical debridement - He does need at a minimum 2 weeks of appropriate IV antistaphylococcal therapy with a beta-lactam antibiotic; today is day 7 of this. Rocephin has been used instead of cefazolin for treatment of MSSA infections, particularly osteoarticular infections, but there is some evidence to suggest that Rocephin may be associated with increased risk for treatment failure for MSSA bacteremia. IV Rocephin 2 g daily remains an option, however, if this is the only way that the patient can complete treatment due to his financial constraints. - Recommend treating the patient with one of the following options, in light of the the above constraints: Either IV Rocephin 2 g daily for 6 weeks (end date 06/27) or IV Rocephin 2 g daily for 2 weeks (end date 05/30), followed by PO linezolid 600 mg BID for 4 weeks or IV Rocephin 2 g daily for 2 weeks (end date 05/30), followed by PO DS Bactrim 5 tabs daily (divided twice a day) plus once daily PO rifampin 600 mg for 4 weeks - The best course of action might be to treat the patient with IV Rocephin for 6 weeks, considering the pill burden and potential limiting nausea that might be associated with the rifampin/Bactrim option and the potential for PO linezolid to be prohibitively expensive/unobtainable. Kem Staples MD [facility] Infectious Diseases pager [phone]
[2018-05-23] MEDS: DIPHENHYDRAMINE HCL 50 MG CAPSULE PO PRN (21:49)
[2018-05-24] MEDS: OXYCODONE-ACETAMINOPHEN 5-325 MG TABLET PO PRN ×5 (03:54→21:59)
[2018-05-24] MEDS: HEPARIN SOD (PORCINE) 5,000 UNIT/ML 1 ML SYRINGE SUBCUT SCH ×3 (05:02→21:59)
[2018-05-24] MEDS: CEFAZOLIN 2 GM/D5W RTU 2 GM/50 ML RTUPB IV SCH ×3 (05:02→21:58)
[2018-05-24 05:44] LABS: HEMATOCRIT 37.8 % (37.9-51.0); HEMOGLOBIN 12.8 g/dL (13.5-17.0); MEAN CORPUSCULAR HEMOGLOBIN 30.8 pg (27.0-33.4); MEAN CORPUSCULAR HGB CONC 33.8 g/dL (32.0-36.0); MEAN CORPUSCULAR VOLUME 91 fl (80-97); PLATELET COUNT 428 10^3/uL (150-450); RED BLOOD COUNT 4.15 10^6/uL (4.35-5.55); WHITE BLOOD COUNT 10.8 10^3/uL (4.0-10.5)
[2018-05-24] MEDS: TRAMADOL HCL 50 MG TABLET PO PRN ×4 (05:57→19:45)
[2018-05-24 06:12] LABS: ALANINE AMINOTRANSFERASE 40 U/L (21-72); ALBUMIN 3.2 g/dL (3.5-5.0); ALKALINE PHOSPHATASE 93 U/L (38-126); ANION GAP 10 (5-19); ASPARTATE AMINO TRANSFERASE 30 U/L (17-59); BILIRUBIN,DIRECT 0.2 mg/dL (0.0-0.4); BILIRUBIN,TOTAL 0.3 mg/dL (0.2-1.3); BLOOD UREA NITROGEN 18 mg/dL (7-20); CALCIUM 9.1 mg/dL (8.4-10.2); CARBON DIOXIDE 27 mmol/L (22-30); CHLORIDE 103 mmol/L (98-107); GLUCOSE 83 mg/dL (75-110); POTASSIUM 5.2 mmol/L (3.6-5.0); SODIUM 140.3 mmol/L (137-145); TOTAL PROTEIN 6.7 g/dL (6.3-8.2)
[2018-05-24 06:21] LABS: ABSOLUTE LYMPHOCYTES# (MANUAL) 3.3 10^3/uL (0.5-4.7); ABSOLUTE MONOCYTES # (MANUAL) 0.2 10^3/uL (0.1-1.4); ABSOLUTE NEUTROPHILS# (MANUAL) 6.9 10^3/uL (1.7-8.2); BASOPHILS % (MANUAL) 0 % (0-2); EOSINOPHILS % (MANUAL) 3 % (0-6); LYMPHOCYTES % (MANUAL) 31 % (13-45); MONOCYTES % (MANUAL) 2 % (3-13); SEGMENTED NEUTROPHILS % (MAN) 64 % (42-78); TOTAL CELLS COUNTED 100
[2018-05-24 06:24] LABS: OVALOCYTES SLIGHT; PLATELET COMMENT ADEQUATE; POIKILOCYTOSIS SLIGHT; TOXIC GRANULATION 2+; TOXIC VACUOLATION PRESENT
--- NOTE | 2018-05-24 07:44 | PDOC PROGRESS REPORT ---
Subjective Progress Note for:: 05/24/18 Subjective:: Patient lying in bed comfortably. No issues overnight. Patient states his pain and range of motion have continued to improved. Has been working on range of motion since operative treatment. Denies fever chills or sweats. Reason For Visit: SPIDER BITE Physical Exam Vital Signs: Temp Pulse Resp BP Pulse Ox 98.0 F 66 15 117/72 100 05/23/18 23:27 05/23/18 23:27 05/23/18 23:27 05/23/18 23:27 05/23/18 23:27 Intake & Output 05/23/18 05/24/18 05/25/18 06:59 06:59 06:59 Intake Total 3505 1590 Balance 3505 1590 Weight 97.2 kg 95.4 kg Musculoskeletal exam: PRESENT: other - Right shoulder: Small area of blood spotting proximally. No erythema. No palpable fluctuance. Forward flexion 110 degrees abduction 90 degrees. Pain with terminal range of motion. No evidence of streaking erythema proximally or distally. Full elbow, wrist and hand range of motion Results Laboratory Results: 05/24/18 04:00 05/24/18 04:00 05/24/18 05/24/18 04:00 04:00 WBC 10.8 H RBC 4.15 L Hgb 12.8 L Hct 37.8 L MCV 91 MCH 30.8 MCHC 33.8 RDW 15.0 H Plt Count 428 Seg Neutrophils % Not Reportable Lymphocytes % Not Reportable Monocytes % Not Reportable Eosinophils % Not Reportable Basophils % Not Reportable Absolute Neutrophils Not Reportable Absolute Lymphocytes Not Reportable Absolute Monocytes Not Reportable Absolute Eosinophils Not Reportable Absolute Basophils Not Reportable Sodium 140.3 Potassium 5.2 H Chloride 103 Carbon Dioxide 27 Anion Gap 10 BUN 18 Creatinine 0.71 Est GFR ( Amer) > 60 Est GFR (Non-Af Amer) > 60 Glucose 83 Calcium 9.1 Total Bilirubin 0.3 AST 30 ALT 40 Alkaline Phosphatase 93 Total Protein 6.7 Albumin 3.2 L 05/20/18 11:34 Shoulder - Right Gram Stain - Final 05/20/18 11:34 Shoulder - Right Wound Culture - Final Staphylococcus Aureus No Anaerobic Organisms 05/20/18 11:12 Shoulder - Right Gram Stain - Final 05/20/18 11:12 Shoulder - Right Wound Culture - Final Staphylococcus Aureus No Anaerobic Organisms 05/20/18 11:12 Biopsy AFB Smear Concentration - Final 05/20/18 11:12 Biopsy Acid Fast Bacilli Smear - Final Impressions: Shoulder X-Ray 05/15/18 01:55 IMPRESSION: Widening of the acromioclavicular joint concerning for AC separation with nondisplaced fracture of the distal clavicle. Associated soft tissue swelling. 2010 [employer]- All Rights Reserved Upper Extremity CT 05/15/18 02:51 IMPRESSION: Cellulitis and myositis of the right supraclavicular region with cortical irregularity of the distal clavicle/AC joint. No discrete or defined abscess or enhancing abnormality. Findings of the AC joint may in part relate to degenerative change. However, an infectious process would be difficult to exclude entirely given the degree of soft tissue edema and inflammation.. TECHNICAL DOCUMENTATION: Quality ID # 436: Final reports with documentation of one or more dose reduction techniques (e.g., Automated exposure control, adjustment of the mA and/or kV according to patient size, use of iterative reconstruction technique) 2010 [employer]- All Rights Reserved Upper Extremity MRI 05/17/18 10:29 IMPRESSION: 1. Diffuse myositis predominantly involving the trapezius and deltoid musculature, with multiple nonenhancing areas within the trapezius muscle. Given the patient's reported history of spider bite and self-induced trauma to the region, findings are highly concerning for pyomyositis (bacterial myositis) and myonecrosis. 2. Erosive changes surrounding the AC joint with a large joint effusion, which is concerning for septic joint and superimposed osteomyelitis. Emergent findings were discussed with Nurse Mcintosh at 2117 on 05/17/2018. Findings will be relayed to the surgical team for follow-up. Lumbar Spine MRI 05/22/18 00:00 IMPRESSION: MILD DEGENERATIVE CHANGES DESCRIBED. NO HIGH-GRADE STENOSIS OR IMPINGEMENT. NO EPIDURAL FLUID COLLECTIONS IDENTIFIED. SOMEWHAT LIMITED WITHOUT INTRAVENOUS CONTRAST. Thoracic Spine MRI 05/22/18 00:00 IMPRESSION: UNREMARKABLE MRI THORACIC SPINE. NO ABNORMAL EPIDURAL FLUID COLLECTION IDENTIFIED. SOMEWHAT LIMITED WITHOUT INTRAVENOUS CONTRAST. Assessment & Plan - Diagnosis (1) Osteomyelitis of shoulder, right Qualifiers: Osteomyelitis type: acute hematogenous Qualified Code(s): M86.011 - Acute hematogenous osteomyelitis, right shoulder Is this a current diagnosis for this admission?: Yes Plan: Status post irrigation and debridement with distal clavicle excision right shoulder Continue current IV antibiotics. Cultures demonstrate MSSA. Continue IV antibiotics at this juncture. IV antibiotics choice and duration as per ID recommendations. We will continue to follow patient intermittently throughout hospital course otherwise follow-up in the office in 14 days.
[2018-05-24] MEDS ORDERED: NORMAL SALINE 10 ML SDV (AFTER EACH USE) IV PRN (10:05)
--- NOTE | 2018-05-24 10:10 | RADIOLOGY REPORT (SQ) ---
EXAM DESCRIPTION: PICC INSERTION; FLUORO/CV PLACEMENT; U/S GUIDE FOR VASCULAR ACCESS COMPLETED DATE/TIME: 05/24/2018 9:59 am REASON FOR STUDY: outpatient IV abx treatment; IV ABX; IV ACCESS COMPARISON: None. FLUOROSCOPY TIME: 13 seconds 1 ultrasound and 1 digital C-arm images saved to PACS. TECHNIQUE: Fluoroscopic and ultrasound guided PICC placement. LIMITATIONS: None. PROCEDURE: After written consent and assessment were obtained, the patient was brought into the fluo roscopy room and placed supine on the table. Ultrasound evaluation of potential access sites were per formed. After successfully identifying a patent left basilic vein, the left arm was prepped and drape d in a sterile fashion along with the ultrasound probe. The entry site was anesthetized with 1% lidoc uche. A 21 gauge 7 cm needle was advanced through the skin and into the basilic vein under live ultra sound guidance. An ultrasound image was saved to PACS confirming access site. A .018 guide wire was then inserted through the needle and into the venous system. The needle was then removed and an 11 b lade scalpel was used to make a 1cm skin incision. A 5 fr peel-away sheath was advanced over the wir e and into the venous system. A measurement was then made using the existing wire and live fluoroscop ic guidance. The wire was then removed and trimmed. The PICC was advanced through the peel-away sheat h and into the venous system. The peel-away sheath was removed and the catheter was adhered to the pa tients arm with a stat lock. The catheter was then aspirated and flushed and a sterile bandage was pl aced over the access site. A fluoroscopic spot image was saved to PACS confirming the catheter tip w ithin the superior vena cava. IMPRESSION: SUCCESSFUL PLACEMENT OF A 5 FR DUAL LUMEN 39 CM PICC IN THE LEFT BASILIC VEIN. COMMENT: Patient medication list reviewed: Yes- Quality ID# 130:Eligible professional attests to doc umenting in the medical record they obtained, updated, or reviewed the patient's current medications. . Quality ID 145: Final reports for procedures using fluoroscopy that document radiation exposure long mohini, or exposure time and number of fluorographic images (if radiation exposure indices are not avail able) Quality ID #76: The patient was prepped and draped using maximum sterile barrier technique including cap, mask, sterile gown, sterile gloves, a large sterile sheet, hand hygiene, and 2% Chlorhexidine fo r cutaneous antisepsis. When ultrasound is used, sterile ultrasound techniques are followed requiring sterile gel and sterile probes. TECHNICAL DOCUMENTATION: JOB ID: [id number] [employer]- All Rights Reserved rev-11/12 Reading location - IP/workstation name: [email or web address] [id number]
[2018-05-24] MEDS: NICOTINE 21 MG/24 HR PATCH.TD24 TD SCH (10:13)
[2018-05-24] MEDS: GABAPENTIN 300 MG CAPSULE PO SCH ×2 (10:15→21:59)
--- NOTE | 2018-05-24 17:35 | PDOC PROGRESS REPORT ---
Subjective Progress Note for:: 05/24/18 Subjective:: 05/24/2018 patient was comfortable in the bed but complains of pain scale of 4 x 10 is getting Percocet every 4 hours 1 tablet he is requesting to increase the dose other than that no complaints he is expressing desire to go home we are going to make arrangements for the home health to get IV antibiotic therapy. Reason For Visit: SPIDER BITE Physical Exam Vital Signs: Temp Pulse Resp BP Pulse Ox 98.3 F 83 20 150/71 H 98 05/24/18 12:00 05/24/18 12:00 05/24/18 12:00 05/24/18 12:00 05/24/18 12:00 Intake & Output 05/23/18 05/24/18 05/25/18 06:59 06:59 06:59 Intake Total 3505 1590 50 Balance 3505 1590 50 Weight 97.2 kg 95.4 kg General appearance: PRESENT: mild distress Eye exam: PRESENT: PERRLA Neck exam: ABSENT: carotid bruit, JVD, lymphadenopathy, thyromegaly Cardiovascular exam: PRESENT: RRR. ABSENT: diastolic murmur, rubs, systolic murmur GI/Abdominal exam: PRESENT: normal bowel sounds, soft. ABSENT: distended, guarding, mass, organolmegaly, rebound, tenderness Neurological exam: PRESENT: alert, awake, oriented to person, oriented to place , oriented to time, oriented to situation, CN II-XII grossly intact. ABSENT: motor sensory deficit Psychiatric exam: PRESENT: appropriate affect, normal mood. ABSENT: homicidal ideation, suicidal ideation Results Laboratory Results: 05/24/18 04:00 05/24/18 04:00 05/24/18 05/24/18 04:00 04:00 WBC 10.8 H RBC 4.15 L Hgb 12.8 L Hct 37.8 L MCV 91 MCH 30.8 MCHC 33.8 RDW 15.0 H Plt Count 428 Seg Neutrophils % Not Reportable Lymphocytes % Not Reportable Monocytes % Not Reportable Eosinophils % Not Reportable Basophils % Not Reportable Absolute Neutrophils Not Reportable Absolute Lymphocytes Not Reportable Absolute Monocytes Not Reportable Absolute Eosinophils Not Reportable Absolute Basophils Not Reportable Sodium 140.3 Potassium 5.2 H Chloride 103 Carbon Dioxide 27 Anion Gap 10 BUN 18 Creatinine 0.71 Est GFR ( Amer) > 60 Est GFR (Non-Af Amer) > 60 Glucose 83 Calcium 9.1 Total Bilirubin 0.3 AST 30 ALT 40 Alkaline Phosphatase 93 Total Protein 6.7 Albumin 3.2 L 05/20/18 11:12 Biopsy Fungal Smear - Final 05/20/18 11:12 Biopsy Fungal Smear - Final Impressions: Shoulder X-Ray 05/15/18 01:55 IMPRESSION: Widening of the acromioclavicular joint concerning for AC separation with nondisplaced fracture of the distal clavicle. Associated soft tissue swelling. 2010 [employer]- All Rights Reserved Upper Extremity CT 05/15/18 02:51 IMPRESSION: Cellulitis and myositis of the right supraclavicular region with cortical irregularity of the distal clavicle/AC joint. No discrete or defined abscess or enhancing abnormality. Findings of the AC joint may in part relate to degenerative change. However, an infectious process would be difficult to exclude entirely given the degree of soft tissue edema and inflammation.. TECHNICAL DOCUMENTATION: Quality ID # [id number]: Final reports with documentation of one or more dose reduction techniques (e.g., Automated exposure control, adjustment of the mA and/or kV according to patient size, use of iterative reconstruction technique) 2010 [employer]- All Rights Reserved Upper Extremity MRI 05/17/18 10:29 IMPRESSION: 1. Diffuse myositis predominantly involving the trapezius and deltoid musculature, with multiple nonenhancing areas within the trapezius muscle. Given the patient's reported history of spider bite and self-induced trauma to the region, findings are highly concerning for pyomyositis (bacterial myositis) and myonecrosis. 2. Erosive changes surrounding the AC joint with a large joint effusion, which is concerning for septic joint and superimposed osteomyelitis. Emergent findings were discussed with Nurse Mcintosh at 2117 on 05/17/2018. Findings will be relayed to the surgical team for follow-up. Lumbar Spine MRI 05/22/18 00:00 IMPRESSION: MILD DEGENERATIVE CHANGES DESCRIBED. NO HIGH-GRADE STENOSIS OR IMPINGEMENT. NO EPIDURAL FLUID COLLECTIONS IDENTIFIED. SOMEWHAT LIMITED WITHOUT INTRAVENOUS CONTRAST. Thoracic Spine MRI 05/22/18 00:00 IMPRESSION: UNREMARKABLE MRI THORACIC SPINE. NO ABNORMAL EPIDURAL FLUID COLLECTION IDENTIFIED. SOMEWHAT LIMITED WITHOUT INTRAVENOUS CONTRAST. Guidance Fluoroscopy 05/24/18 00:00 IMPRESSION: SUCCESSFUL PLACEMENT OF A 5 FR DUAL LUMEN 39 CM PICC IN THE LEFT BASILIC VEIN. Interventional Vascular Procedure 05/24/18 00:00 IMPRESSION: SUCCESSFUL PLACEMENT OF A 5 FR DUAL LUMEN 39 CM PICC IN THE LEFT BASILIC VEIN. PICC Line Insertion 05/24/18 00:00 IMPRESSION: SUCCESSFUL PLACEMENT OF A 5 FR DUAL LUMEN 39 CM PICC IN THE LEFT BASILIC VEIN. Assessment & Plan - Diagnosis (1) Osteomyelitis of shoulder, right Qualifiers: Osteomyelitis type: acute hematogenous Qualified Code(s): M86.011 - Acute hematogenous osteomyelitis, right shoulder Is this a current diagnosis for this admission?: Yes Plan: 05/24/2018. This came back positive for MSSA. Currently on cefazolin as per ID recommendations. ID suggesting patient may have to go home on IV Rocephin at least for 6 weeks. Make arrangements to see if the clinical case manager arrange for home health. Component of pain 4 x 10. (2) Cellulitis Qualifiers: Site of cellulitis: unspecified site Qualified Code(s): L03.90 - Cellulitis , unspecified Is this a current diagnosis for this admission?: Yes Plan: 05/24/2018 cellulitis will continue the present management. (3) Spider bite Qualifiers: Encounter type: initial encounter Is this a current diagnosis for this admission?: Yes Plan: 2017 complaining of tenderness over the deltoid and trapezius cultures positive for gram-positive cocci in clusters MSSA as per ID he is on cefazolin. (4) Right shoulder pain Qualifiers: Chronicity: acute Qualified Code(s): M25.511 - Pain in right shoulder Is this a current diagnosis for this admission?: Yes Plan: 05/24/2018 patient is complaining of pain of 4 x 10 and I increased Percocets to 2 tablets every 4 hours as needed. (5) Gram-positive bacteremia Is this a current diagnosis for this admission?: Yes Plan: 07/24/2017 cultures were positive for MSSA. She would a days of IV vancomycin and Zosyn. Cefazolin from 05/19/2018. He may have to go home on IV antibiotic therapy. - Time Time Spent with patient: 15-24 minutes Medications reviewed and adjusted accordingly: Yes Anticipated discharge: Home
[2018-05-24] MEDS: NORMAL SALINE 10 ML SDV (SCHEDULED) IV SCH (22:00)
[2018-05-24] MEDS: DIPHENHYDRAMINE HCL 50 MG CAPSULE PO PRN (22:23)
[2018-05-25] MEDS: OXYCODONE-ACETAMINOPHEN 5-325 MG TABLET PO PRN ×4 (02:52→15:11)
[2018-05-25] MEDS: HEPARIN SOD (PORCINE) 5,000 UNIT/ML 1 ML SYRINGE SUBCUT SCH ×2 (05:41→13:21)
[2018-05-25] MEDS: CEFAZOLIN 2 GM/D5W RTU 2 GM/50 ML RTUPB IV SCH ×2 (05:41→13:39)
[2018-05-25] MEDS: TRAMADOL HCL 50 MG TABLET PO PRN (05:57)
[2018-05-25] MEDS: NICOTINE 21 MG/24 HR PATCH.TD24 TD SCH (10:41)
[2018-05-25] MEDS: NORMAL SALINE 10 ML SDV (SCHEDULED) IV SCH (10:49)
[2018-05-25] MEDS: GABAPENTIN 300 MG CAPSULE PO SCH (10:49)
[2018-05-25 14:32] VITALS: BP 123/55
--- NOTE | 2018-05-25 16:09 | PDOC DISCHARGE SUMMARY ---
General - Admit/Disc Date/PCP Admission Date/Primary Care Provider: 05/15/18 05:01 Discharge Date: 05/25/18 - Discharge Diagnosis (1) Osteomyelitis of shoulder, right Is this a current diagnosis for this admission?: Yes Summary: 05/25/2018-and was admitted with right shoulder pain and limited extremity movements initially was on IV cortex is MRI of the right upper extremity was done and has I&D was done on 05/20/2018. Had a distal clavicle excision of the right shoulder during the I&D was on IV narcotics and pain management and on IV antibiotic therapy MRI shows osteomyelitis the consult was done during the hospital course and he is on cefazolin until now, as per ID recommendations he can go home on IV Rocephin 1 g daily for 6 weeks he was advised to come to the hospital on daily basis for IV antibiotic therapy. Also advised to follow-up with the orthopedist as an outpatient for further management of the right shoulder problems. (2) Cellulitis Is this a current diagnosis for this admission?: Yes Summary: 05/25/2018 cellulitis at the right shoulder management as above (3) Spider bite Is this a current diagnosis for this admission?: Yes Summary: 05/25/2018 patient had a spider bite prior to hospitalization initially complained of tenderness over the deltoid and trapezius shoulder movements are improving since the admission he had a status post MRI of the right upper extremity on 05/17/2018 it shows concern for diffuse myositis/myonecrosis/ osteomyelitis blood cultures shows MSSA easily treated with IV vancomycin and IV Zosyn later on which was switched to cefazolin as per ID recommendations patient is going to go home on IV ceftriaxone as per , ID recommendations (4) Right shoulder pain Is this a current diagnosis for this admission?: Yes Summary: 05/25/2018 patient is going to go home on Percocet 2 tablets every 4 hours as needed for pain as per the patient pain is considerably improved since the admission (5) Gram-positive bacteremia Is this a current diagnosis for this admission?: Yes Summary: 05/25/2018 positive blood cultures probably secondary to complication of spider bite and band ablation of the wound by the patient at home blood cultures from 2017+ for MSSA echocardiogram was done while he was in the hospital negative for endocarditis MRI of the thoracic lumbar spine was done negative for epidural abscess - Additional Information Resuscitation Status: Full Code Discharge Diet: Regular Discharge Activity: Activity As Tolerated Prescriptions: Oxycodone HCl/Acetaminophen [Percocet 5-325 mg Tablet] 1 tab PO Q4HP PRN #30 tablet PRN Reason: For Pain Home Medications: Oxycodone HCl/Acetaminophen [Percocet 5-325 mg Tablet] 1 tab PO Q4HP PRN #30 tablet 05/25/18 History of Present Illness History of Present Illness: JOSE MARTINES is a 37 year old male past medical history of spider bite years ago. 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 Came to the emergency room after a spider bite. He stated that while sleeping around 10 PM suddenly developed right shoulder pain, woke up went to the bathroom noticed a 2 small dots over his shoulder, try to cut the piece of the skin with razor and try to squeeze the lesion and he stated that small amount of pus came out. Later on patient developed intense burning sensation associated with expanding redness and swelling around the right shoulder right neck right upper chest with excruciating right shoulder pain and tenderness on palpation. In the ED right shoulder x-ray shows doing of AC concerning for AC separation with nondisplaced fracture of the distal clavicle with associated soft tissue swelling. CT of the shoulder shows a cellulitis and myelitis in the right supraclavicular region with cortical irregularity of the distal clavicle and AC joint. No abscess was noted at the time she was admitted for pain management and was started on IV Zosyn and IV vancomycin. Ortho was consulted. They recommended MRI of the shoulder. Physical Exam Vital Signs: Temp Pulse Resp BP Pulse Ox 97.6 F 88 16 123/55 L 97 05/25/18 12:00 05/25/18 12:00 05/25/18 12:00 05/25/18 12:00 05/25/18 12:00 Intake & Output 05/24/18 05/25/18 05/26/18 06:59 06:59 06:59 Intake Total 1590 736 Balance 1590 736 Weight 95.4 kg 90.1 kg General appearance: PRESENT: no acute distress Head exam: PRESENT: atraumatic Eye exam: PRESENT: PERRLA Neck exam: ABSENT: carotid bruit, JVD, lymphadenopathy, thyromegaly Respiratory exam: PRESENT: clear to auscultation sally. ABSENT: rales, rhonchi, wheezes Cardiovascular exam: PRESENT: RRR. ABSENT: diastolic murmur, rubs, systolic murmur GI/Abdominal exam: PRESENT: normal bowel sounds, soft. ABSENT: distended, guarding, mass, organolmegaly, rebound, tenderness Neurological exam: PRESENT: alert, awake, oriented to person, oriented to place , oriented to time, oriented to situation, CN II-XII grossly intact. ABSENT: motor sensory deficit Results Laboratory Results: 05/24/18 04:00 05/24/18 04:00 Impressions: Shoulder X-Ray 05/15/18 01:55 IMPRESSION: Widening of the acromioclavicular joint concerning for AC separation with nondisplaced fracture of the distal clavicle. Associated soft tissue swelling. 2010 [employer]- All Rights Reserved Upper Extremity CT 05/15/18 02:51 IMPRESSION: Cellulitis and myositis of the right supraclavicular region with cortical irregularity of the distal clavicle/AC joint. No discrete or defined abscess or enhancing abnormality. Findings of the AC joint may in part relate to degenerative change. However, an infectious process would be difficult to exclude entirely given the degree of soft tissue edema and inflammation.. TECHNICAL DOCUMENTATION: Quality ID # [id number]: Final reports with documentation of one or more dose reduction techniques (e.g., Automated exposure control, adjustment of the mA and/or kV according to patient size, use of iterative reconstruction technique) 2010 [employer]- All Rights Reserved Upper Extremity MRI 05/17/18 10:29 IMPRESSION: 1. Diffuse myositis predominantly involving the trapezius and deltoid musculature, with multiple nonenhancing areas within the trapezius muscle. Given the patient's reported history of spider bite and self-induced trauma to the region, findings are highly concerning for pyomyositis (bacterial myositis) and myonecrosis. 2. Erosive changes surrounding the AC joint with a large joint effusion, which is concerning for septic joint and superimposed osteomyelitis. Emergent findings were discussed with Nurse Mcintosh at 2117 on 05/17/2018. Findings will be relayed to the surgical team for follow-up. Lumbar Spine MRI 05/22/18 00:00 IMPRESSION: MILD DEGENERATIVE CHANGES DESCRIBED. NO HIGH-GRADE STENOSIS OR IMPINGEMENT. NO EPIDURAL FLUID COLLECTIONS IDENTIFIED. SOMEWHAT LIMITED WITHOUT INTRAVENOUS CONTRAST. Thoracic Spine MRI 05/22/18 00:00 IMPRESSION: UNREMARKABLE MRI THORACIC SPINE. NO ABNORMAL EPIDURAL FLUID COLLECTION IDENTIFIED. SOMEWHAT LIMITED WITHOUT INTRAVENOUS CONTRAST. Guidance Fluoroscopy 05/24/18 00:00 IMPRESSION: SUCCESSFUL PLACEMENT OF A 5 FR DUAL LUMEN 39 CM PICC IN THE LEFT BASILIC VEIN. Interventional Vascular Procedure 05/24/18 00:00 IMPRESSION: SUCCESSFUL PLACEMENT OF A 5 FR DUAL LUMEN 39 CM PICC IN THE LEFT BASILIC VEIN. PICC Line Insertion 05/24/18 00:00 IMPRESSION: SUCCESSFUL PLACEMENT OF A 5 FR DUAL LUMEN 39 CM PICC IN THE LEFT BASILIC VEIN. Qualifiers - * PATIENT BEING DISCHARGED WITH ANY OF THE FOLLOWING DIAGNOSIS: No VTE patient discharged on overlapping Therapy?: Yes
== END 2018-05-25 16:00 | disposition home or self-care (01) | DRG 516 ==
LOC: ER 00:23 → EH 05:01 → 5 06:31
PROVIDERS: ADMIT Internal Medicine; ATTEND Internal Medicine
PROC: 0PB90ZZ Excision of Right Clavicle, Open Approach (ICD-10-PCS; 2018-05-20)
PROC: 3E1U38Z Irrigation of Joints using Irrigating Substance, Percutaneous Approach (ICD-10-PCS; principal; 2018-05-20 10:30)
DX: M86.01 Acute hematogenous osteomyelitis, shoulder (principal); R78.81 Bacteremia; L03.113 Cellulitis of right upper limb; T63.301A Toxic effect of unspecified spider venom, accidental (unintentional), initial encounter; M60.9 Myositis, unspecified; F17.200 Nicotine dependence, unspecified, uncomplicated
CPT/HCPCS: 01610; 36415; 36569; 72146; 72148; 76937; 77001; 80048; 80053; 80202; 82550; 82803; 83605; 85025; 85610; 85652; 86140; 87015; 87040; 87070; 87075; 87077; 87101; 87116; 87186; 87205; 87206; 88304; 88311; 90715; 93005; 93010; 93306; 96361; 96374; 96375; 99285; J0131; J0295; J0690; J1170; J1642; J1644; J1885; J2060; J2250; J2270; J2405; J2543; J2704; J3010; J3370; J3490; J7030; J7060

== ENCOUNTER 2018-05-28 11:36 | Emergency (ER) | payer SELFPAY ==
[2018-05-28 11:55] VITALS: BP 145/88
[2018-05-28] MEDS ORDERED: CEFTRIAXONE INJ 1000 MG VIAL IV ONE (13:19)
--- NOTE | 2018-05-28 13:21 | ER Document Report ---
ED Extremity Problem, Upper - General Chief Complaint: Shoulder Pain Stated Complaint: SHOULDER PAIN Time Seen by Provider: 05/28/18 13:04 Mode of Arrival: Ambulatory Information source: Patient Notes: 37-year-old male with a prior hospitalization for osteomyelitis presents the emergency department for IV Rocephin. He was admitted on 05/15/18 for cellulitis/myositis/osteomyelitis of the right shoulder. Blood cultures were positive for MSSA. Patient was treated with IV vancomycin and IV Zosyn. ID was consulted and he was then switched to cefazolin. Patient discharged home on IV rocephin. Plan of care is to continue IV antibiotics outpatient x 6 weeks. Patient comes to the hospital daily to receive 1G of Rocephin IV. Here today to receive the antibiotic. No new complaints. Follows up outpatient with Dr. Rodrigez. TRAVEL OUTSIDE OF THE [place] IN LAST 30 DAYS: No - HPI Onset: Other - 05/15/18 Quality of pain: Throbbing Severity of pain: Moderate Context: Other - osteomyelitis Associated symptoms: None Exacerbated by: Nothing Relieved by: Nothing Similar symptoms previously: Yes Recently seen / treated by doctor: Yes - Related Data Allergies/Adverse Reactions: No Known Allergies Allergy (Verified 05/26/18 15:28) Past Medical History - General Information source: Patient - Social History Smoking Status: Former Smoker Family History: Reviewed & Not Pertinent - Past Medical History Cardiac Medical History: Denies: Hx Coronary Artery Disease, Hx Heart Attack, Hx Hypertension Pulmonary Medical History: Denies: Hx Asthma, Hx Bronchitis, Hx COPD, Hx Pneumonia Neurological Medical History: Denies: Hx Cerebrovascular Accident, Hx Seizures Renal/ Medical History: Denies: Hx Peritoneal Dialysis Musculoskeletal Medical History: Denies Hx Arthritis - Immunizations Hx Diphtheria, Pertussis, Tetanus Vaccination: Yes Review of Systems - Review of Systems Constitutional: No symptoms reported EENT: No symptoms reported Cardiovascular: No symptoms reported Respiratory: No symptoms reported Gastrointestinal: No symptoms reported Musculoskeletal: Other - R shoulder pain Skin: No symptoms reported Hematologic/Lymphatic: No symptoms reported Neurological/Psychological: No symptoms reported -: Yes All other systems reviewed and negative Physical Exam - Vital signs Vitals: Temp Pulse Resp BP Pulse Ox 98.2 F 93 14 145/88 H 99 05/28/18 11:53 05/28/18 11:53 05/28/18 11:53 05/28/18 11:53 05/28/18 11:53 - Notes Notes: PHYSICAL EXAMINATION: GENERAL: Well-appearing, well-nourished and in no acute distress. HEAD: Atraumatic, normocephalic. EYES: Pupils equal round and reactive to light, extraocular movements intact, sclera anicteric, conjunctiva are normal. ENT: Nares patent, oropharynx clear without exudates. Moist mucous membranes. NECK: Normal range of motion, supple without lymphadenopathy LUNGS: Breath sounds clear to auscultation bilaterally and equal. No wheezes rales or rhonchi. HEART: Regular rate and rhythm without murmurs ABDOMEN: Soft, nontender, nondistended abdomen. No guarding, no rebound. No masses appreciated. Musculoskeletal: Normal range of motion, tenderness to palpation of the R shoulder and scapula. No erythema. NEUROLOGICAL: Cranial nerves grossly intact. Normal speech, normal gait. Normal sensory, motor exams PSYCH: Normal mood, normal affect. SKIN: Warm, Dry, normal turgor, no rashes or lesions noted. Course - Re-evaluation Re-evalutation: 05/28/18 13:58 Patient given 1G of rocephin by the nurse. Duplicate order provided by myself. Nurse states that the patient eloped. He wanted to be seen for pain control not IV antibiotics. Ran out of his percocet at home. I was not aware of this prior to his elopement. - Vital Signs Vital signs: Temp Pulse Resp BP Pulse Ox 98.2 F 93 14 145/88 H 99 05/28/18 11:53 05/28/18 11:53 05/28/18 11:53 05/28/18 11:53 05/28/18 11:53 Discharge - Discharge Clinical Impression: Osteomyelitis Qualifiers: Osteomyelitis type: unspecified type Osteomyelitis location: shoulder Laterality: right Qualified Code(s): M86.9 - Osteomyelitis, unspecified Disposition: AGAINST MEDICAL ADVICE
== END 2018-05-28 13:51 | disposition left against medical advice (07) ==
LOC: ER 11:36
DX: M86.9 Osteomyelitis, unspecified (principal); B95.61 Methicillin susceptible Staphylococcus aureus infection as the cause of diseases classified elsewhere; M25.511 Pain in right shoulder; Z53.20 Procedure and treatment not carried out because of patient's decision for unspecified reasons
CPT/HCPCS: 99283